=== PATIENT | female | born 1980 | race Caucasian/White ===

== ENCOUNTER → 2020-03-08 12:36 | Outpatient (BNVA) | payer MEDICAID, SELFPAY | PROVIDERS: Family Provider Family Medicine; PCP Family Medicine; Visit Provider Internal Medicine Rheumatology | DX: M19.90 Unspecified osteoarthritis, unspecified site (principal); Z79.899 Other long term (current) drug therapy; Z11.59 Encounter for screening for other viral diseases; Z11.1 Encounter for screening for respiratory tuberculosis; R21 Rash and other nonspecific skin eruption; Z87.2 Personal history of diseases of the skin and subcutaneous tissue; M54.89 Other dorsalgia; M79.7 Fibromyalgia; M77.9 Enthesopathy, unspecified; E11.9 Type 2 diabetes mellitus without complications | CPT/HCPCS: 36415; 82306; 85651; 86140; 86480; 86704; 86803; 86812; 87340; 99204 ==

== ENCOUNTER 2020-03-28 12:44 | Outpatient (CLI) | payer MEDICAID, SELFPAY ==
--- NOTE | 2020-03-28 13:15 | XR_ITS ---
WS: [id number] XR hand RT min 3V* [id number] REASON FOR EXAM: psoriatic arthritis FINDINGS: No focal bony abnormality is identified. Specifically no synovial based bony erosions are noted. The joint spaces of the hand are relatively well preserved. No soft tissue abnormality is identified. XR/XR hand RT min 3V* [id number] IMPRESSION: Normal right hand.
--- NOTE | 2020-03-28 13:45 | XR_ITS ---
WS: [id number] XR hand LT min 3V* [id number] REASON FOR EXAM: psoriatic arthritis FINDINGS: No focal bony abnormalities are identified. Specifically no synovial based erosions are identified. The joint spaces of the left hand are well-preserved. No soft tissue abnormalities are identified. XR/XR hand LT min 3V* [id number] IMPRESSION: Normal left hand.
--- NOTE | 2020-03-28 14:15 | XR_ITS ---
WS: [id number] CHEST 2 VIEWS HISTORY: psoriatic arthritis COMPARISON: None available. Lungs: Area of atelectasis at the medial RIGHT lung base. Otherwise lungs are clear. No nodules. No p leural effusion. Cardiac size: Mildly enlarged cardiac silhouette. Mediastinum/Aorta: Normal mediastinum. Bones: Normal. XR/XR chest 2V* [id number] IMPRESSION: Subsegmental atelectasis at the medial RIGHT lung base. Recommend short-term fo llow-up to ensure resolution.
--- NOTE | 2020-03-28 14:45 | XR_ITS ---
WS: [id number] XR foot LT min 3V* [id number] REASON FOR EXAM: psoriatic arthritis FINDINGS: There is early bony bridging identified on the lateral view of the left foot on the AP views this wou ld appear to represent the lateralmost aspect of the articulation between the navicular bone on the f irst cuneiform. The abnormality could represent a bridging bony osteophytes but more likely represent s a segment of fusion/coalition between the 2 tarsal bones. No other focal bony abnormality or articular abnormality is identified. No synovial based erosions ar e identified. Small accessory ossicle or sesamoid deep to the plantar fascia. XR/XR foot LT min 3V* [id number] IMPRESSION: No findings of synovial-based arthropathy. Tarsal abnormality as above.
--- NOTE | 2020-03-28 15:14 | XR_ITS ---
XR foot RT min 3V* [id number] REASON FOR EXAM: psoriatic arthritis FINDINGS: No focal bony abnormality. Specifically no synovial based erosions are identified. The joint spaces of the forefoot, midfoot, and hindfoot are relatively well preserved. No soft tissue abnormality is identified. IMPRESSION: Normal right foot. [facility] XR/XR foot RT min 3V* [id number] IMPRESSION: No synovial based arthropathic changes identified.
--- NOTE | 2020-03-28 15:15 | XR_ITS ---
WS: [id number] XR foot RT min 3V* [id number] REASON FOR EXAM: psoriatic arthritis FINDINGS: Deep to the plantar fascia which cannot be localized on an AP view. It would appear to be a sesamoid or accessory ossicle. The joint spaces of the forefoot, midfoot, and hindfoot are well preserved. No focal bony abnormality is identified.
--- NOTE | 2020-03-28 15:45 | XR_ITS ---
WS: [id number] PELVIS: AP VIEW SUBMITTED HISTORY: psoriatic arthritis COMPARISON: None available. Very mild degenerative changes at the SI joints. No erosions or fusion. No significant narrowing of t he hip joints. No periostitis. XR/XR pelvis 1-2V* [id number] IMPRESSION: Mild degenerative changes at the SI joints.
== END 2020-03-28 12:45 | disposition home or self-care (01) ==
LOC: RAD 12:46
PROVIDERS: Family Provider Family Medicine; PCP Family Medicine; Visit Provider Internal Medicine Rheumatology
DX: L40.50 Arthropathic psoriasis, unspecified (principal); L40.9 Psoriasis, unspecified; J98.11 Atelectasis
CPT/HCPCS: 71046; 72170; 73130; 73630

== ENCOUNTER → 2020-04-19 13:50 | Outpatient (BNVA) | payer MEDICAID, SELFPAY | PROVIDERS: Family Provider Family Medicine; PCP Family Medicine; Visit Provider Internal Medicine Rheumatology | DX: L40.50 Arthropathic psoriasis, unspecified (principal); Z79.899 Other long term (current) drug therapy; Z15.89 Genetic susceptibility to other disease; M77.9 Enthesopathy, unspecified; M54.89 Other dorsalgia; R21 Rash and other nonspecific skin eruption; M79.7 Fibromyalgia | CPT/HCPCS: 99214 ==

== ENCOUNTER 2020-05-01 10:55 | Outpatient (CLI) | payer MEDICAID, SELFPAY ==
--- NOTE | 2020-05-01 11:03 | MR_ITS ---
WS: [id number] INDICATION: Sacroiliitis TECHNIQUE: MRI of the sacrum without gadolinium enhancement. Coronal T2, coronal STIR, axial T1, axia l T2, sagittal T1 fat sat and sagittal T2 fat sat. FINDINGS: T1 hyperintense lesion right ilium consistent with hemangioma measuring 13 mm. Mild degener ative arthritis sacroiliac joints. No periarticular edema. No evidence of sacroiliitis. Normal bone m arrow signal in the sacrum and lower lumbar spine. Normal bone marrow signal in the proximal hips par tially visualized. Soft tissues are normal in appearance. Partially visualized sigmoid colon appears normal. Unremarkable lower lumbar spine. MR/MR sacrum wo con* [id number] IMPRESSION: 1. No evidence of bone marrow edema or sacroiliitis. 2. Mild degenerative arthritis sacroiliac joints. No periarticular edema. No s ignificant erosive changes. 3. Incidental hemangioma right ilium. 4. Unremarkable lower lumbar spine.
== END 2020-05-01 10:56 | disposition home or self-care (01) ==
LOC: RADSHAW 10:58
PROVIDERS: PCP Family Medicine; Visit Provider Internal Medicine Rheumatology
DX: Z15.89 Genetic susceptibility to other disease (principal); M46.1 Sacroiliitis, not elsewhere classified; D18.09 Hemangioma of other sites
CPT/HCPCS: 72148

== ENCOUNTER → 2020-07-10 14:50 | Outpatient (BNVA) | payer MEDICAID, SELFPAY | PROVIDERS: PCP Family Medicine; Visit Provider Internal Medicine Rheumatology | DX: L40.50 Arthropathic psoriasis, unspecified (principal); Z79.899 Other long term (current) drug therapy; Z15.89 Genetic susceptibility to other disease; M77.9 Enthesopathy, unspecified; M79.7 Fibromyalgia; M54.89 Other dorsalgia; L98.9 Disorder of the skin and subcutaneous tissue, unspecified; E11.9 Type 2 diabetes mellitus without complications; Z87.891 Personal history of nicotine dependence | CPT/HCPCS: 99214 ==

== ENCOUNTER → 2020-11-07 13:40 | Outpatient (BNVA) | payer MEDICAID, SELFPAY | PROVIDERS: PCP Family Medicine; Visit Provider Internal Medicine Rheumatology | DX: L40.50 Arthropathic psoriasis, unspecified (principal); Z79.899 Other long term (current) drug therapy; Z15.89 Genetic susceptibility to other disease; M77.9 Enthesopathy, unspecified; M54.89 Other dorsalgia; M79.7 Fibromyalgia; E11.9 Type 2 diabetes mellitus without complications; Z79.4 Long term (current) use of insulin; Z87.891 Personal history of nicotine dependence | CPT/HCPCS: 99214 ==

== ENCOUNTER → 2021-02-26 14:37 | Outpatient (BNVA) | payer MEDICAID, SELFPAY | PROVIDERS: PCP Family Medicine; Visit Provider Internal Medicine Rheumatology | DX: L40.50 Arthropathic psoriasis, unspecified (principal); Z79.899 Other long term (current) drug therapy; Z15.89 Genetic susceptibility to other disease; M77.9 Enthesopathy, unspecified; M79.7 Fibromyalgia; M54.89 Other dorsalgia; L98.9 Disorder of the skin and subcutaneous tissue, unspecified; E11.9 Type 2 diabetes mellitus without complications; Z71.89 Other specified counseling; Z87.891 Personal history of nicotine dependence | CPT/HCPCS: 99214 ==

== ENCOUNTER → 2021-07-16 15:53 | Outpatient (BNVA) | payer MEDICAID, SELFPAY | PROVIDERS: PCP Family Medicine; Visit Provider Nurse Practitioner Family | DX: U09.9 Post COVID-19 condition, unspecified (principal); Z99.2 Dependence on renal dialysis | CPT/HCPCS: 80053; 85007 ==

== ENCOUNTER → 2021-09-10 13:16 | Outpatient (BNVA) | payer MEDICAID, SELFPAY | PROVIDERS: PCP Family Medicine; Visit Provider Internal Medicine Rheumatology | DX: L40.50 Arthropathic psoriasis, unspecified (principal); I77.6 Arteritis, unspecified; Z79.899 Other long term (current) drug therapy; M79.7 Fibromyalgia; E11.9 Type 2 diabetes mellitus without complications; Z87.2 Personal history of diseases of the skin and subcutaneous tissue | CPT/HCPCS: 99214 ==

== ENCOUNTER 2021-10-23 12:00 | Outpatient (CLI) | payer MEDICAID, SELFPAY | END 2021-10-23 12:01 | disposition home or self-care (01) | LOC: SLEEP 10-24 14:17 | PROVIDERS: PCP Family Medicine; Visit Provider Internal Medicine Critical Care Medicine | DX: G47.33 Obstructive sleep apnea (adult) (pediatric) (principal) | CPT/HCPCS: G0399 ==

== ENCOUNTER 2021-11-05 12:10 | Outpatient (CLI) | payer MEDICAID, SELFPAY ==
[2021-11-05 13:16] LABS: C Reactive Protein 5.7 mg/L (0.0-4.9)
[2021-11-05 13:20] LABS: Erythrocyte Sedimentation Rate 33 mm/hr (0-15)
[2021-11-05 13:57] LABS: Glucose Urine UA Norm (Normal); Ketones Urine Negative (Negative); Protein Urine 1+ (Negative); Urine Appearance Clear (CLEAR); Urine Color Yellow (Yellow); Urine Creatinine 61 mg/dL (28-217); pH Urine 5 (5-7)
[2021-11-05 13:58] LABS: Bilirubin Urine Neg (Negative); Blood Urine 3+ (Negative); Leukocyte Esterase Urine Negative (Negative); Nitrate Urine Negative (Negative); Urobilinogen Urine Norm (Negative); WBC Urine 0-4 /hpf (0-5)
[2021-11-05 13:59] LABS: Add Urine Culture? Yes; Bacteria Urine 1+ /hpf; Hyaline Casts Urine RARE /lpf; Mucus Urine TRACE /hpf; Urine Protein Random 112 mg/dL
== END 2021-11-05 12:11 | disposition home or self-care (01) ==
LOC: LAB 12:11
PROVIDERS: PCP Family Medicine; Visit Provider Internal Medicine Rheumatology
DX: L40.50 Arthropathic psoriasis, unspecified (principal); I77.6 Arteritis, unspecified; Z79.899 Other long term (current) drug therapy; Z15.89 Genetic susceptibility to other disease
CPT/HCPCS: 81001; 82570; 84156; 85651; 86140

== ENCOUNTER → 2021-11-28 14:17 | Outpatient (BNVA) | payer MEDICAID, SELFPAY | PROVIDERS: PCP Family Medicine; Visit Provider Internal Medicine Rheumatology | DX: L40.50 Arthropathic psoriasis, unspecified (principal); N05.9 Unspecified nephritic syndrome with unspecified morphologic changes; I77.89 Other specified disorders of arteries and arterioles; Z79.899 Other long term (current) drug therapy; Z79.52 Long term (current) use of systemic steroids; E11.9 Type 2 diabetes mellitus without complications; Z15.89 Genetic susceptibility to other disease; Z71.89 Other specified counseling | CPT/HCPCS: 99214; 99215 ==

== ENCOUNTER → 2022-01-21 14:28 | Outpatient (BNVA) | payer MEDICAID, SELFPAY | PROVIDERS: PCP Family Medicine; Visit Provider Internal Medicine Rheumatology | DX: L40.50 Arthropathic psoriasis, unspecified (principal); N05.9 Unspecified nephritic syndrome with unspecified morphologic changes; I77.89 Other specified disorders of arteries and arterioles; Z79.899 Other long term (current) drug therapy; M79.7 Fibromyalgia; Z15.89 Genetic susceptibility to other disease; Z71.89 Other specified counseling | CPT/HCPCS: 36415; 80076; 82565; 85025; 85651; 86140; 99205 ==

== ENCOUNTER → 2022-02-07 10:00 | Outpatient (BNVA) | payer MEDICAID, SELFPAY | PROVIDERS: PCP Family Medicine; Visit Provider Internal Medicine Critical Care Medicine | DX: J96.11 Chronic respiratory failure with hypoxia (principal); J45.909 Unspecified asthma, uncomplicated; I77.6 Arteritis, unspecified; R60.0 Localized edema; Z87.891 Personal history of nicotine dependence; Z86.16 Personal history of COVID-19; L40.50 Arthropathic psoriasis, unspecified | CPT/HCPCS: 71046; 80053; 83880; 85025; 87635; 99214 ==

== ENCOUNTER → 2022-05-12 14:00 | Outpatient (BNVA) | payer MEDICAID, SELFPAY | PROVIDERS: PCP Family Medicine; Visit Provider Internal Medicine Rheumatology | DX: N05.9 Unspecified nephritic syndrome with unspecified morphologic changes (principal); I77.89 Other specified disorders of arteries and arterioles; Z79.899 Other long term (current) drug therapy; M54.89 Other dorsalgia; L40.50 Arthropathic psoriasis, unspecified; Z71.89 Other specified counseling; M79.7 Fibromyalgia; Z15.89 Genetic susceptibility to other disease; R21 Rash and other nonspecific skin eruption; E11.9 Type 2 diabetes mellitus without complications; Z79.4 Long term (current) use of insulin | CPT/HCPCS: 99214 ==

== ENCOUNTER → 2022-07-31 14:15 | Outpatient (BNVA) | payer MEDICAID, SELFPAY | PROVIDERS: PCP Family Medicine; Visit Provider Internal Medicine Pulmonary Disease | DX: J45.909 Unspecified asthma, uncomplicated (principal); J96.11 Chronic respiratory failure with hypoxia; R07.9 Chest pain, unspecified; I77.6 Arteritis, unspecified; G47.33 Obstructive sleep apnea (adult) (pediatric); Z87.891 Personal history of nicotine dependence; R63.5 Abnormal weight gain; Z68.41 Body mass index [BMI] 40.0-44.9, adult; R60.9 Edema, unspecified; J32.9 Chronic sinusitis, unspecified; R09.82 Postnasal drip; L40.50 Arthropathic psoriasis, unspecified | CPT/HCPCS: 99214 ==

== ENCOUNTER → 2022-08-19 14:09 | Outpatient (BNVA) | payer MEDICAID, SELFPAY | PROVIDERS: PCP Family Medicine; Visit Provider Internal Medicine Rheumatology | DX: N05.9 Unspecified nephritic syndrome with unspecified morphologic changes (principal); I77.89 Other specified disorders of arteries and arterioles; Z15.89 Genetic susceptibility to other disease; M25.569 Pain in unspecified knee; L40.50 Arthropathic psoriasis, unspecified; Z79.899 Other long term (current) drug therapy; Z71.89 Other specified counseling; M79.7 Fibromyalgia; E11.8 Type 2 diabetes mellitus with unspecified complications; I10 Essential (primary) hypertension; Z79.52 Long term (current) use of systemic steroids | CPT/HCPCS: 99214 ==

== ENCOUNTER 2022-10-28 13:09 | Outpatient (CLI) | payer MEDICAID, SELFPAY ==
--- NOTE | 2022-10-28 14:35 | XR_ITS ---
WS: [id number] Sacroiliac joints, 3 views, Clinical Data: Z15.89 - Genetic susceptibility to other disease Comparison: AP pelvis, 03/28/2020 Findings: The SI joints are normal in width. No erosion, sclerosis or destruction is seen. There are no fractur es or dislocations. The adjacent visualized pelvis and hips are unremarkable. XR/XR sacroiliac jts m 3V [id number] Impression: Negative SI joints.
--- NOTE | 2022-10-28 14:35 | XR_ITS ---
WS: [id number] Right knee, 3 views, 10/28/2022 Clinical Data: Z15.89 - Genetic susceptibility to other disease Comparison: Right knee, 04/01/2015. Findings: No fractures or dislocations are seen. The joint spaces are normal. The patella is intact. The soft t issues are unremarkable. XR/XR knee RT 3V* [id number] Impression: Negative right knee. Kellgren-Jatin Classification: grade 0 (none): definite absence of x-ray raf nges of osteoarthritis
--- NOTE | 2022-10-28 14:49 | USCV_ITS ---
Amna De Guzman Age: 42 Gender: F : 1980 Exam Date: 10/28/2022 15:10 Ordering Phys: Bipin Villanueva DO Technologist: CT Exam Location: [facility] – [place] Indication: sob BP: 168 / 90 HR: 84 Rhythm: Sinus Technical Quality: Adequate MEASUREMENTS (Male / Female) Normal Values 2D ECHO LV Diastolic Diameter PLAX 5.0 cm 4.2 - 5.9 / 3.9 - 5.3 cm LV Systolic Diameter PLAX 3.5 cm IVS Diastolic Thickness 0.9 cm 0.6 - 1.0 / 0.6 - 0.9 cm IVS Systolic Thickness 2.0 cm LVPW Diastolic Thickness 1.7 cm 0.6 - 1.0 / 0.6 - 0.9 cm LVPW Systolic Thickness 2.3 cm LVOT Diameter 2.0 cm LV Ejection Fraction 2D Teich 56.1 % LV Ejection Fraction MOD 2C 57.5 % LV Ejection Fraction 2C AL 60.0 % LA Diameter 4.0 cm LA Width 3.5 cm LA Height 3.9 cm RA Width 3.4 cm RA Height 3.3 cm Aorta at Sinotubular Diameter 2.4 cm M-MODE Aortic Annulus Diameter 2.7 cm LA Ao Ratio MM 1.8 MV E Point Septal Separation 0.8 cm DOPPLER AV Peak Velocity 129.0 cm/s LVOT Peak Velocity 110.0 cm/s AV Area Cont Eq vti 3.5 cm squared AV Area Cont Eq pk 2.7 cm squared MV Peak Velocity 130.0 cm/s MV Area PHT 4.6 cm squared Mitral E to A Ratio 0.7 MV E' Velocity 41.5 cm/s Mitral E to MV E' Ratio 9.7 Mitral E to LV E' Lateral Ratio 9.8 Mitral E to LV E' Septal Ratio 9.6 TR Peak Velocity 144.5 cm/s TR Peak Gradient 8.4 mmHg TR Mean Velocity 133.0 cm/s TR Mean Gradient 8.1 mmHg TR Velocity Time Integral 36.9 cm TV Peak E Velocity 94.0 cm/s Right Atrial Pressure 8.0 mmHg Pulmonary Artery Systolic Pressu 16.4 mmHg PV Peak Velocity 127.0 cm/s FINDINGS Left Ventricle Normal left ventricular size and systolic function, EF 60 %. No regional wall motion abnormalities. Grade I/IV diastolic dysfunction (abnormal relaxation filling pattern), normal to mildly elevated filling pressures. Right Ventricle The right ventricle is normal in size and function. Right Atrium The right atrium is normal in size. Left Atrium The left atrium is normal in size. Mitral Valve No gross abnormalities noted Aortic Valve No gross abnormalities noted Tricuspid Valve Trace tricuspid valve regurgitation. Pulmonic Valve No gross abnormalities noted Pericardium No pericardial effusion. Aorta Normal ascending aorta dimension. IVC The inferior vena cava appears normal. CONCLUSIONS Normal left ventricular size and systolic function, EF 60 %. No regional wall motion abnormalities. Grade I/IV diastolic dysfunction (abnormal relaxation filling pattern), normal to mildly elevated filling pressures. Trace tricuspid valve regurgitation. Estimated pulmonary artery peak systolic pressure within normal limits. There is no pericardial effusion. No similar previous studies are available for comparison Dr Arpan Barber MD FAC (Electronically Signed) Final Date: 28 Oct 2022 21:27 S
== END 2022-10-28 13:10 | disposition home or self-care (01) ==
PROVIDERS: PCP Family Medicine; Visit Provider Family Medicine
DX: Z15.89 Genetic susceptibility to other disease (principal); M25.562 Pain in left knee; M25.561 Pain in right knee
CPT/HCPCS: 72202; 73562; 93306; 94010; 94618; 94729

== ENCOUNTER 2022-11-03 12:21 | Outpatient (CLI) | payer MEDICAID, SELFPAY ==
[2022-11-03 13:06] LABS: Basophils % 0.3 %; Eosinophils # 0.2 10^3/uL (0.0-0.8); Eosinophils % 1.3 %; Hematocrit 32.1 % (37.0-47.0); Hemoglobin 10.1 g/dL (11.5-15.3); Lymphocytes # 1.9 10^3/uL (0.8-4.8); Lymphocytes % 15.8 %; Mean Corpuscular HGB Conc 31.5 g/dL (30.0-36.0); Mean Corpuscular Hemoglobin 28.1 pg (28.0-34.0); Mean Corpuscular Volume 89.2 fl (81-99); Mean Platelet Volume 10.4 fL (7.4-10.4); Monocytes # 0.6 10^3/uL (0.2-0.9); Monocytes % 4.7 %; Neutrophils # 9.02 10^3/uL (1.8-7.7); Neutrophils % 75.3 %; Nucleated Red Blood Cells % 0.2 %; Platelet Count 306 10^3/cmm (130-400); Red Cell Distribution Width 14.6 % (12.1-15.1)
[2022-11-03 13:27] LABS: Alanine Aminotransferase 7 U/L (0-33); Albumin Level 3.7 g/dL (3.5-5.2); Alkaline Phosphatase 129 U/L (35-105); Aspartate Amino Transferase 10 U/L (0-32); C Reactive Protein 34.7 mg/L (0.0-4.9); Globulin 3.4 g/dL (1.3-4.6); Glomerular Filtration Rate 35.2 mL/min (90-130); Total Bilirubin 0.2 mg/dL (0.15-1.2); Total Protein 7.1 g/dL (6.6-8.7)
[2022-11-04 18:30] LABS: Alternaria Alternata (M6) Ige <0.10 kU/L; Alternaria Class 0; Bermuda Class 0; Bermuda Grass (G2) Ige <0.10 kU/L; Cat Dander (E1) Ige <0.10 kU/L; Cat Dander Class 0; Common Ragweed (Short) (W1) Ig <0.10 kU/L; D. Farinae Class 0; Dermatophagoides Class 0; Dermatophagoides Farinae (D2) <0.10 kU/L; Dermatophagoides Pteronyssinus <0.10 kU/L; Dog Dander (E5) Ige <0.10 kU/L; Dog Dander Class 0; Elm (T8) Ige <0.10 kU/L; Elm Class 0; English Plantain (W9) Ige <0.10 kU/L; English Plantain Class 0; House Dust (Greer) (H1) Ige <0.10 kU/L; House Dust (Hollister- Stier) <0.10 kU/L; House Dust Class 0; Immunoglobulin E 4 kU/L (<OR=114); Johnson Grass (G10) Ige <0.10 kU/L; Johnson Grass Cl 0; June Grass Class 0; June Grass(Kentucky Blue) (G8) <0.10 kU/L; Lamb'S Quarters (Goose Foot) <0.10 kU/L; Lamb'S Quarters Class 0; Maple (Box Elder) (T1) Ige <0.10 kU/L; Maple Class 0; Meadow Fescue (G4) Ige <0.10 kU/L; Meadow Fescue Class 0; Mucor Racemosus Class 0; Oak (T7) Ige <0.10 kU/L; Oak Class 0; Orchard Grass (Cocksfoot) (G3) <0.10 kU/L; Penicillium Class 0; Penicillium Notatum (M1) Ige <0.10 kU/L; Perennial Rye Grass (G5) Ige <0.10 kU/L; Perennial Rye Grass Class 0; Ragweeed Class 0; Rough Marsh Elder (W16) Ige <0.10 kU/L; Rough Marsh Elder Class 0; Sweet Vernal Class 0; Sweet Vernal Grass (G1) Ige <0.10 kU/L; Timothy Grass (G6) Ige <0.10 kU/L; Timothy Grass Class 0
[2022-11-05 19:29] LABS: Aspergillus Fumigatus, Igg Ab, 4.7 mg/L (<=102)
== END 2022-11-03 12:22 | disposition home or self-care (01) ==
LOC: LAB 12:27
PROVIDERS: Internal Medicine Rheumatology; Visit Provider Internal Medicine Pulmonary Disease
DX: R06.02 Shortness of breath (principal); R55 Syncope and collapse; R00.2 Palpitations; L40.50 Arthropathic psoriasis, unspecified; Z79.899 Other long term (current) drug therapy
CPT/HCPCS: 36415; 80076; 82565; 82785; 85025; 86003; 86140; 93270

== ENCOUNTER 2022-11-13 13:18 | Outpatient (CLI) | payer MEDICAID, SELFPAY ==
--- NOTE | 2022-11-13 13:00 | USCV_ITS ---
Amna De Guzman Age: 42 Gender: F : 1980 Exam Date: 11/13/2022 13:31 Ordering Phys: Daryl Mazariegos MD Technologist: BENITO Exam Location: [facility] – [place] Indication: Palpitations. Pre Syncope Risk Factors: Previous Vascular Surgery: Right Brachial BP: / Left Brachial BP: / Right Left Velocity (cm/s) Spectral Plaque Velocity (cm/s) Spectral Plaque Syst/Diast Broadening Syst/Diast Broadening 133.10/30.20 Prox CCA 165.60/ 39.40 119.60/30.20 Mid CCA 105.20/ 27.60 111.80/34.70 Distal CCA 113.10/ 39.40 77.90/ 26.70 Prox ICA 143.30/ 32.90 96.50/ 24.10 Mid ICA 107.80/ 38.10 122.30/50.00 Distal ICA 120.90/ 55.20 134.10 ECA 117.00 0.92 ICA/CCA 0.87 Antegrade Vertebral Antegrade 94.70/ 28.90 cm/s 69.10/ 17.90 cm/s Tri Subclavian Tri 235.2 185.3 0 0 CONCLUSIONS Mild intimal thickening both CCA Right ICA stenosis <50%. Left ICA stenosis 50-69% at the lower end of the range. Normal antegrade Doppler flow noted in the right vertebral artery. Normal antegrade Doppler flow noted in the left vertebral artery. Ramírez Em MD (Electronically Signed) Final Date: 13 Nov 2022 17:31 S
== END 2022-11-13 13:19 | disposition home or self-care (01) ==
LOC: RAD 13:19
PROVIDERS: PCP Internal Medicine Pulmonary Disease; Visit Provider Internal Medicine Pulmonary Disease
DX: R00.2 Palpitations (principal); R55 Syncope and collapse; I65.23 Occlusion and stenosis of bilateral carotid arteries
CPT/HCPCS: 93880

== ENCOUNTER → 2022-11-20 14:36 | Outpatient (BNVA) | payer MEDICAID, SELFPAY | PROVIDERS: PCP Internal Medicine Pulmonary Disease; Visit Provider Internal Medicine Rheumatology | DX: E11.9 Type 2 diabetes mellitus without complications (principal); N05.9 Unspecified nephritic syndrome with unspecified morphologic changes; I77.89 Other specified disorders of arteries and arterioles; Z71.89 Other specified counseling; M79.7 Fibromyalgia; Z15.89 Genetic susceptibility to other disease; L40.50 Arthropathic psoriasis, unspecified; Z79.899 Other long term (current) drug therapy | CPT/HCPCS: 99214 ==

== ENCOUNTER → 2022-12-11 11:04 | Outpatient (BNVA) | payer MEDICAID, SELFPAY | PROVIDERS: PCP Internal Medicine Pulmonary Disease; Visit Provider Thoracic Surgery (Cardiothoracic Vascular Surgery) | DX: I65.23 Occlusion and stenosis of bilateral carotid arteries (principal); I10 Essential (primary) hypertension; Z87.891 Personal history of nicotine dependence | CPT/HCPCS: 99203 ==

== ENCOUNTER 2023-01-14 23:01 | Emergency (ER) | payer MEDICAID, SELFPAY ==
[2023-01-14 23:14] VITALS: BP 170/96; PULSE 116; RESP 18; TEMP 36.6; O2SAT 94; BMI 46.0
--- NOTE | 2023-01-14 23:27 | ED_ITS ---
HPI - Abdominal Pain General: Chief Complaint: Abdominal Pain Stated Complaint: ABD Pain Time Seen by Provider: 01/14/23 23:13 History of Present Illness: Ms. De Guzman is a 42-year-old lady with complex past medical history including fibromyalgia, hypertension, hyper lipidemia, obesity, history of vasculitis with coma, history of CKD, history of feeding tube placement status post removal presenting to the emergency department for evaluation of abdominal pain. She notes worsening symptoms over the past week initially intermittent however now more constant. There is left upper quadrant pain associated with epigastric and some radiation of the right upper quadrant. She notes worsening with eating. She has nausea but no vomiting. She has not had diarrhea. Apparently she went to [facility] and CT without contrast did not demonstrate obvious finding. No other specific changes in health, exacerbating, or alleviating factors identified. 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 High risk medication use History of hypercholesterolemia History of psoriasis HLA B27 (HLA B27 positive) Hx of migraines Hypertension Immunization counseling Inflammatory back pain Joint pain Muscle pain Psoriatic arthritis Skin rash Small vessel vasculitis Vasculitis Surgical History History of tubal ligation S/P emergency tracheotomy for assistance in breathing Family History Other Cancer Diabetes Hyperlipidemia Psoriatic arthritis Stroke Denies family history of Rheumatoid arthritis Lupus CAD (coronary artery disease) Chronic kidney disease (CKD) Lung disease Hypertension Social History Smoking and tobacco status: former smoker (Quit 2015,) Quit status (tobacco): has quit using tobacco Year quit tobacco: 2016 Former quit date comment: 1ppd X 19 years, started at age 17 years Alcohol intake: current Alcohol intake frequency: holidays/special occasions only Physical Exam Const: COMMON NORMALS: alert GENERAL APPEARANCE: cooperative and well developed HENMT: COMMON NORMALS: normocephalic and atraumatic HEAD & SCALP: normocephalic and atraumatic Eye: COMMON NORMALS: conjunctivae normal CONJUNCTIVA: Yes conjunctivae normal SCLERA: sclerae normal Neck/C-Spine: COMMON NORMALS: supple GENERAL: Yes trachea midline Resp: COMMON NORMALS: clear to auscultation bilaterally EFFORT & INSPECTION: Yes able to speak in complete sentences AUSCULTATION: clear to auscultation bilaterally Cardio: COMMON NORMALS: regular rate and regular rhythm RATE: regular rate RHYTHM: regular rhythm GI: COMMON NORMALS: Soft to palpation PALPATION: Yes Soft to palpation, Yes Tenderness to palpation present (GI), No Guarding due to palpation present (GI) and No Rigid due to palpation Extremity: GENERAL: Yes normal exam except as noted and No edema Neuro: COMMON NORMALS: moves all extremities SENSORIUM/ORIENTATION: Yes alert and No Orientation impaired Psych: COMMON NORMALS: mental status grossly normal and Normal thought process present THOUGHT PROCESS: Normal thought process present Course Vital Signs: Vital signs: Vital Signs Temperature 97.8 F 01/14/23 23:14 Pulse Rate 93 01/15/23 03:10 Respiratory Rate 20 H 01/15/23 03:15 Blood Pressure 176/90 01/15/23 03:15 Pulse Oximetry 99 01/15/23 03:15 MDM - Abdominal Pain Medical Decision Making 42-year-old lady presenting with abdominal symptoms. Uncomfortable appearing however nontoxic. Abdominal tenderness without evidence of acute surgical abdomen. Labs with minimal leukocytosis, mild anemia. Metabolic panel with mild dehydration, elevated creatinine noted though mildly improved/order baseline. Lipase is minimally elevated. No clear UTI. CT with possible mild ileus/enteritis. Incidental findings discussed with patient. Symptoms improved with analgesia, antiemetic, GI cocktail. The results of ED evaluation were discussed with the patient including pr escriptions and/or symptomatic cares (if applicable) including appropriate and responsible use, followup plan, and return precautions. The patient verbalized understanding and felt safe for discharge. Medical Records I reviewed the patient's medical records. Lab Data I reviewed the patient's lab results. 01/15/23 00:11 01/15/23 00:11 Labs/Radiology: Radiology Impressions Abdomen/Pelvis CT 01/15/23 00:56 IMPRESSION: 1. Question mild left-sided small bowel ileus or enteritis. No high-grade small bowel obstruction, abscess or free air. 2. Left ovarian 4 cm cyst. 3. Large and fatty liver. Other chronic findings above. Laboratory Results WBC 10.4 10^3/uL (4.0-10.0) H 01/15/23 00:11 RBC 3.88 10^6/uL (4.1-5.3) L 01/15/23 00:11 Hgb 11.1 g/dL (11.5-15.3) L 01/15/23 00:11 Hct 35.4 % (37.0-47.0) L 01/15/23 00:11 MCV 91.2 fl (81-99) 01/15/23 00:11 MCH 28.6 pg (28.0-34.0) 01/15/23 00:11 MCHC 31.4 g/dL (30.0-36.0) 01/15/23 00:11 RDW 16.5 % (12.1-15.1) H 01/15/23 00:11 Plt Count 251 10^3/cmm (130-400) 01/15/23 00:11 MPV 9.8 fL (7.4-10.4) 01/15/23 00:11 Neut % (Auto) 78.9 % 01/15/23 00:11 Lymph % (Auto) 12.3 % 01/15/23 00:11 [place] % (Auto) 6.1 % 01/15/23 00:11 Eos % (Auto) 1.1 % 01/15/23 00:11 Baso % (Auto) 0.5 % 01/15/23 00:11 Neut # (Auto) 8.24 10^3/uL (1.8-7.7) H 01/15/23 00:11 Lymph # (Auto) 1.3 10^3/uL (0.8-4.8) 01/15/23 00:11 [place] # (Auto) 0.6 10^3/uL (0.2-0.9) 01/15/23 00:11 Eos # (Auto) 0.1 10^3/uL (0.0-0.8) 01/15/23 00:11 Baso # (Auto) 0.1 10^3/uL (0.0-0.1) 01/15/23 00:11 Nucleated RBC % (auto) 0 % 01/15/23 00:11 Nucleated RBCs # 0.0 /100WBC 01/15/23 00:11 Sodium 133 mmol/L (136-145) L 01/15/23 00:11 Potassium 4.0 mmol/L (3.5-5.1) 01/15/23 00:11 Chloride 97 mmol/L (98-107) L 01/15/23 00:11 Carbon Dioxide 23 mmol/L (22-29) 01/15/23 00:11 Anion Gap 17.0 (5-19) 01/15/23 00:11 BUN 23 mg/dL (6-20) H 01/15/23 00:11 Creatinine 1.4 mg/dL (0.5-0.9) H 01/15/23 00:11 GFR Calculation 41.0 mL/min (90-130) L 01/15/23 00:11 Glucose 264 mg/dL (65-115) H 01/15/23 00:11 Calculated Osmolality 289 mOsm/kg (285-295) 01/15/23 00:11 Calcium 9.2 mg/dL (8.5-10.5) 01/15/23 00:11 Total Bilirubin 0.2 mg/dL (0.15-1.2) 01/15/23 00:11 AST 23 U/L (0-32) 01/15/23 00:11 ALT 24 U/L (0-33) 01/15/23 00:11 Alkaline Phosphatase 119 U/L (35-105) H 01/15/23 00:11 Total Protein 6.9 g/dL (6.6-8.7) 01/15/23 00:11 Albumin 3.7 g/dL (3.5-5.2) 01/15/23 00:11 Globulin 3.2 g/dL (1.3-4.6) 01/15/23 00:11 Lipase 71 U/L (13-60) H 01/15/23 00:11 HCG, Qual Negative (Negative) 01/15/23 00:11 Urine Color Yellow (Yellow) 01/15/23 01:09 Urine Appearance Clear (CLEAR) 07/27/23 01:09 Urine pH 5 (5-7) 01/15/23 01:09 Ur Specific [place] 1.010 (1.005-1.030) 01/15/23 01:09 Urine Protein 3+ (Negative) H 01/15/23 01:09 Urine Glucose (UA) 1+ (Normal) H 01/15/23 01:09 Urine Ketones Negative (Negative) 01/15/23 01:09 Urine Blood 2+ (Negative) H 01/15/23 01:09 Urine Nitrate Negative (Negative) 01/15/23 01:09 Urine Bilirubin Neg (Negative) 01/15/23 01:09 Urine Urobilinogen Norm mg/dL (Negative) 01/15/23 01:09 Ur Leukocyte Esterase Negative (Negative) 01/15/23 01:09 Urine RBC 0-4 /hpf (0-2) H 01/15/23 01:09 Urine WBC 0-4 /hpf (0-5) H 01/15/23 01:09 Ur Squamous Epith Cells 0-4 /hpf (0-5) H 01/15/23 01:09 Amorphous Sediment Not Reportable 01/15/23 01:09 Urine Bacteria Trace /hpf (NONE) 01/15/23 01:09 Discharge Plan Discharge Patient Disposition: Home Clinical Impression: Enteritis, Abdominal pain, Dehydration, mild Condition: Stable Prescriptions: New Reglan 10 mg tablet 10 mg PO Q4H PRN (Reason: nausea and vomiting) Qty: 20 0RF oxycodone 5 mg tablet 5 mg PO Q4H PRN (Reason: pain) Qty: 10 0RF No Action cetirizine 10 mg tablet 10 mg PO DAILY polysaccharide iron complex 150 mg iron capsule 150 mg PO DAILY cholecalciferol (vitamin D3) 25 mcg (1,000 unit) capsule 25 mcg PO DAILY magnesium oxide 400 mg magnesium tablet 400 mg PO BID losartan 25 mg tablet 50 mg PO DAILY azathioprine 50 mg tablet 50 mg PO DAILY metoprolol succinate 50 mg tablet extended release 24 hr 50 mg PO DAILY magnesium oxide 400 mg magnesium tablet 400 mg PO BID cholecalciferol (vitamin D3) 25 mcg (1,000 unit) capsule 2,000 unit PO DAILY cetirizine 10 mg tablet 10 mg PO DAILY PRN albuterol sulfate 90 mcg/actuation HFA aerosol inhaler 1 inh inhalation QID Orencia 125 mg/mL syringe 125 mg SUBCUT .Q7days polysaccharide iron complex 150 mg iron capsule 150 mg PO BID sitagliptin phosphate [Januvia] PO insulin aspart U-100 [Novolog FlexPen U-100 Insulin] 100 unit/mL (3 mL) insulin pen 5 unit SUBCUT TID MDD 75 units Qty: 30 2RF Rx Instructions: with SSI, max 25 units TID sucralfate [Carafate] 1 gram tablet 1 g PO QID 14 Days Qty: 56 0RF pantoprazole [Protonix] 40 mg tablet,delayed release (DR/EC) 40 mg PO BID 30 Days Qty: 60 0RF ondansetron 4 mg tablet,disintegrating 4 mg PO Q8H PRN (Reason: nausea and vomiting) Qty: 14 0RF azathioprine 50 mg tablet 50 mg PO BID Qty: 60 3RF prednisone 2.5 mg tablet 2.5 mg PO DAILY Qty: 90 1RF insulin glargine [Lantus Solostar U-100 Insulin] 100 unit/mL (3 mL) insulin pen 60 unit SUBCUT DAILY 30 Days Qty: 18 2RF dextromethorphan polistirex 30 mg/5 mL suspension,extended rel 12 hr 10 ml PO Q12H PRN (Reason: cough) Qty: 89 0RF (DME) Dexcom G6 Sensor Device See Rx Instructions .ROUTE .MEDSUPPLY Qty: 3 3RF Rx Instructions: As directed (DME) Dexcom G6 Claims Investigator Misc See Rx Instructions .ROUTE .MEDSUPPLY Qty: 1 0RF Rx Instructions: As directed (DME) Dexcom G6 Transmitter Device See Rx Instructions .ROUTE .MEDSUPPLY Qty: 1 0RF Rx Instructions: As directed leflunomide 20 mg tablet 20 mg PO DAILY Qty: 30 3RF Orencia 125 mg/mL syringe 125 mg SUBCUT .Q7days Qty: 4 3RF (DME) pen needle, diabetic [Comfort EZ [place]] 31 gauge x 5/16 needle See Rx Instructions .Route Qty: 100 11RF Rx Instructions: Use with inuslin injection 4 times daily hydrocodone-acetaminophen 5-325 mg tablet 1 tab PO Q6H PRN (Reason: pain) Qty: 14 0RF Discharge Orders: Discharge ED (Routine); Ordered 01/15/23 Ordered By: Rajendra Rojas Referrals: Kelley Quiles MD [Primary Care Provider] - Discharge Diet: Advance as tolerated and Clear Liquid Discharge Activity: Increase activity as tolerated Patient Instructions: Dehydration (ED), Abdominal Pain (ED), Enteritis (ED), Opioid Safety Activity Restrictions/Additional Instructions: Thank you for visiting the emergency department. You were seen and evaluated for abdominal pain. The most likely cause of your symptoms is related to enteritis. You were found to have mild dehydration. I will prescribe antibiotics, antinausea medication, and pain medication. Please also follow-up with your primary care provider and rheumatology. Return for uncontrolled symptoms or anything else that you are concerned about and feel needs emergency department evaluation. Coding Level of Care Code ED Yarding Supervisor for Noemi Reilly
[2023-01-14 23:37] VITALS: BP 167/106; O2SAT 97
[2023-01-14 23:40] VITALS: BP 167/106; RESP 21; O2SAT 97
[2023-01-14 23:45] VITALS: BP 167/106; RESP 18; O2SAT 95
[2023-01-14 23:50] VITALS: BP 167/106; RESP 27; O2SAT 93
[2023-01-14 23:55] VITALS: BP 167/106; RESP 23; O2SAT 94
[2023-01-15] VITALS (40 sets, daily range): BP systolic 161–185; BP diastolic 90–126; PULSE 93–100; RESP 14–32; O2SAT 86–100
[2023-01-15 00:17] LABS: Basophils # 0.1 10^3/uL (0.0-0.1); Basophils % 0.5 %; Eosinophils # 0.1 10^3/uL (0.0-0.8); Eosinophils % 1.1 %; Hematocrit 35.4 % (37.0-47.0); Hemoglobin 11.1 g/dL (11.5-15.3); Lymphocytes # 1.3 10^3/uL (0.8-4.8); Lymphocytes % 12.3 %; Mean Corpuscular HGB Conc 31.4 g/dL (30.0-36.0); Mean Corpuscular Hemoglobin 28.6 pg (28.0-34.0); Mean Corpuscular Volume 91.2 fl (81-99); Mean Platelet Volume 9.8 fL (7.4-10.4); Monocytes # 0.6 10^3/uL (0.2-0.9); Monocytes % 6.1 %; Neutrophils # 8.24 10^3/uL (1.8-7.7); Neutrophils % 78.9 %; Nucleated Red Blood Cells % 0 %; Platelet Count 251 10^3/cmm (130-400); Red Blood Count 3.88 10^6/uL (4.1-5.3); Red Cell Distribution Width 16.5 % (12.1-15.1); White Blood Count 10.4 10^3/uL (4.0-10.0)
[2023-01-15] MEDS: morphine 4 mg/mL SDV 1 mL IVP (00:24)
[2023-01-15] MEDS: ondansetron 2 mg/ML SDV 2 mL 4 MG IVP (00:24)
[2023-01-15] MEDS: aluminum-mag hydrox-simethicon 30 ML, sucralfate oral liq 1 GM PO (00:28)
[2023-01-15 00:41] LABS: Alanine Aminotransferase 24 U/L (0-33); Albumin Level 3.7 g/dL (3.5-5.2); Alkaline Phosphatase 119 U/L (35-105); Aspartate Amino Transferase 23 U/L (0-32); Blood Urea Nitrogen 23 mg/dL (6-20); Calcium 9.2 mg/dL (8.5-10.5); Carbon Dioxide 23 mmol/L (22-29); Chloride 97 mmol/L (98-107); Globulin 3.2 g/dL (1.3-4.6); Glucose 264 mg/dL (65-115); Lipase 71 U/L (13-60); Osmolality Calculated 289 mOsm/kg (285-295); Sodium 133 mmol/L (136-145); Total Bilirubin 0.2 mg/dL (0.15-1.2); Total Protein 6.9 g/dL (6.6-8.7)
[2023-01-15 00:53] LABS: HCG, Serum Qual Negative (Negative)
--- NOTE | 2023-01-15 00:56 | CTR_ITS ---
PROCEDURE INFORMATION: Exam: CT Abdomen And Pelvis Without Contrast Exam date and time: 01/15/2023 1:22 AM Age: 42 years old Clinical indication: Abdominal pain; Localized; Left upper quadrant (luq); Additional info: Epigastric and luq pain TECHNIQUE: Imaging protocol: Computed tomography of the abdomen and pelvis without contrast. Radiation optimization: All CT scans at this facility use at least one of these dose optimization techniques: automated exposure control; mA and/or kV adjustment per patient size (includes targeted exams where dose is matched to clinical indication); or iterative reconstruction. REPORTING DATA: Count of CT and Cardiac NM exams in prior 12 months: This patient has received 0 known CTs and 0 known cardiac nuclear medicine studies in the 12 months prior to the current study. COMPARISON: CT abdomen pelvis w con* [id number] 07/17/2020 6:04 PM RADIATION DOSE METRICS: Total DLP (mGy-cm): 1203.41 FINDINGS: Lungs: Mild lower lung atelectasis or scarring. Liver: Liver is large and quite steatotic. Gallbladder and bile ducts: No calcified gallstones or biliary dilation identified. Pancreas: Unremarkable with no suspicious mass. No ductal dilation. Spleen: The spleen is not enlarged. No suspicious mass is noted. Adrenal glands: Normal. No mass. Kidneys and ureters: No solid renal mass or hydronephrosis. Stomach and bowel: Few left-sided small bowel loops measure up to about 3.5 cm. No high-grade small bowel obstruction, abscess or free air. No colon wall thickening. Mild sigmoid diverticulosis. Appendix: No evidence of appendicitis. Intraperitoneal space: Unremarkable. No free air. No suspicious fluid collection. Vasculature: Small pelvic phleboliths. Mild vascular calcification. Lymph nodes: No enlarged lymph nodes. Urinary bladder: Unremarkable as visualized. Reproductive: Left ovarian 4 cm cyst. Bones/joints: Mild spine DJD. Soft tissues: No acute or suspicious finding noted. CT/CT abdomen pelvis wo con [id number] IMPRESSION: 1. Question mild left-sided small bowel ileus or enteritis. No high-grade small bowel obstruction, abscess or free air. 2. Left ovarian 4 cm cyst. 3. Large and fatty liver. Other chronic findings above.
[2023-01-15 01:26] LABS: Bilirubin Urine Neg (Negative); Blood Urine 2+ (Negative); Glucose Urine UA 1+ (Normal); Ketones Urine Negative (Negative); Leukocyte Esterase Urine Negative (Negative); Nitrate Urine Negative (Negative); Protein Urine 3+ (Negative); Urine Appearance Clear (CLEAR); Urine Color Yellow (Yellow); Urobilinogen Urine Norm (Negative); pH Urine 5 (5-7)
[2023-01-15 01:27] LABS: Add Urine Culture? No; Add Urine Microscopic? YES; Bacteria Urine TRACE /hpf; RBC Urine 0-4 /hpf (0-2); Squamous Epithelial Cell Urine 0-4 /hpf (0-5); WBC Urine 0-4 /hpf (0-5)
[2023-01-15] MEDS: acetaminophen 500 mg Tablet 1000 MG PO (03:13)
[2023-01-15] MEDS: dicyclomine 10 mg Capsule PO (03:14)
== END 2023-01-15 03:28 | disposition home or self-care (01) ==
PROVIDERS: Emergency Provider Emergency Medicine; PCP Family Medicine
DX: E86.0 Dehydration (principal); K52.9 Noninfective gastroenteritis and colitis, unspecified; R10.9 Unspecified abdominal pain
CPT/HCPCS: 36415; 74176; 80053; 81001; 83690; 84703; 85025; 96374; 96375; 99285; J2270; J2405

== ENCOUNTER 2023-01-21 13:01 | Emergency (ER) | payer MEDICAID, SELFPAY ==
[2023-01-21 13:31] VITALS: BP 150/85; PULSE 87; RESP 18; TEMP 36.8; O2SAT 97
[2023-01-21 16:52] LABS: Basophils # 0.1 10^3/uL (0.0-0.1); Basophils % 0.5 %; Eosinophils # 0.1 10^3/uL (0.0-0.8); Eosinophils % 1.2 %; Hematocrit 38.6 % (37.0-47.0); Hemoglobin 12.3 g/dL (11.5-15.3); Lymphocytes # 1.6 10^3/uL (0.8-4.8); Mean Corpuscular HGB Conc 31.9 g/dL (30.0-36.0); Mean Corpuscular Hemoglobin 29.1 pg (28.0-34.0); Mean Corpuscular Volume 91.3 fl (81-99); Mean Platelet Volume 9.7 fL (7.4-10.4); Monocytes # 0.7 10^3/uL (0.2-0.9); Monocytes % 7.9 %; Neutrophils # 6.72 10^3/uL (1.8-7.7); Neutrophils % 72.2 %; Nucleated Red Blood Cells % 0 %; Platelet Count 299 10^3/cmm (130-400); Red Blood Count 4.23 10^6/uL (4.1-5.3); Red Cell Distribution Width 16.5 % (12.1-15.1); White Blood Count 9.3 10^3/uL (4.0-10.0)
[2023-01-21 17:09] LABS: Alanine Aminotransferase 29 U/L (0-33); Albumin Level 3.8 g/dL (3.5-5.2); Alkaline Phosphatase 119 U/L (35-105); Aspartate Amino Transferase 29 U/L (0-32); Blood Urea Nitrogen 19 mg/dL (6-20); Calcium 9.8 mg/dL (8.5-10.5); Carbon Dioxide 23 mmol/L (22-29); Chloride 98 mmol/L (98-107); Globulin 3.4 g/dL (1.3-4.6); Glucose 227 mg/dL (65-115); Lipase 56 U/L (13-60); Osmolality Calculated 291 mOsm/kg (285-295); Sodium 136 mmol/L (136-145); Total Bilirubin 0.2 mg/dL (0.15-1.2); Total Protein 7.2 g/dL (6.6-8.7)
--- NOTE | 2023-01-21 18:46 | USR_ITS ---
PROCEDURE INFORMATION: Exam: US Abdomen, Limited; Right Upper Quadrant Exam date and time: 01/21/2023 7:05 PM Age: 42 years old Clinical indication: Abdominal pain; Flank; Left upper quadrant (luq); Patient HX: Normal tbili = 0.2, normal ast = 29, normal alt = 29, elevated alkphos = 119, normal lipase = 56; Additional info: Abd pain TECHNIQUE: Imaging protocol: Real time ultrasound of the abdomen with image documentation. Limited exam focused on the right upper quadrant. COMPARISON: CT abdomen pelvis wo con [id number] 01/15/2023 1:22 AM FINDINGS: Liver: Liver enlarged to 23 cm with hepatic steatosis. Gallbladder: Normal. No gallstones. There is no gallbladder wall thickening. Biliary ducts: Normal. No stones. No dilation. Pancreas: Visualized pancreas is unremarkable. Right kidney: Normal. No mass. No hydronephrosis. US/US gall bladder [id number] IMPRESSION: 1. Liver enlarged to 23 cm with hepatic steatosis. 2. Negative for cholelithiasis or cholecystitis.
--- NOTE | 2023-01-21 18:51 | W.ED.ABDPA2 ---
HPI - Abdominal Pain General: Chief Complaint: Abdominal Pain Stated Complaint: upper abd pain Time Seen by Provider: 01/21/23 18:36 Source: patient Mode of arrival: ambulatory Limitations: no limitations History of Present Illness: 42-year-old female who states she been having epigastric and left upper quadrant pain for 2 weeks she was seen here a week ago had normal work-up and a CT scan that showed an enteritis she states she continued to have some pain had vomiting her PCP does not appear concerned of pancreatitis patient denies any fever she rates her pain a 7 out of 10 currently denies any worsening improving factors. 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 High risk medication use History of hypercholesterolemia History of psoriasis HLA B27 (HLA B27 positive) Hx of migraines Hypertension Immunization counseling Inflammatory back pain Joint pain Muscle pain Psoriatic arthritis Skin rash Small vessel vasculitis Vasculitis Surgical History History of tubal ligation S/P emergency tracheotomy for assistance in breathing Family History Other Cancer Diabetes Hyperlipidemia Psoriatic arthritis Stroke Denies family history of Rheumatoid arthritis Lupus CAD (coronary artery disease) Chronic kidney disease (CKD) Lung disease Hypertension Social History Smoking and tobacco status: former smoker (Quit 2015,) Quit status (tobacco): has quit using tobacco Year quit tobacco: 2015 Former quit date comment: 1ppd X 19 years, started at age 17 years Alcohol intake: current Alcohol intake frequency: holidays/special occasions only Physical Exam Const: COMMON NORMALS: no acute distress, patient oriented x3 and healthy appearing HENMT: COMMON NORMALS: normocephalic and atraumatic HEAD & SCALP: normocephalic and atraumatic Eye: COMMON NORMALS: conjunctivae normal CONJUNCTIVA: Yes conjunctivae normal Neck/C-Spine: COMMON NORMALS: full ROM and supple Chest: COMMONS NORMALS: normal inspection of the chest Resp: COMMON NORMALS: normal respiratory effort, No retractions, No use of accessory muscles and clear to auscultation bilaterally AUSCULTATION: clear to auscultation bilaterally Cardio: COMMON NORMALS: regular rate, regular rhythm and No murmurs present (Cardio) RATE: regular rate RHYTHM: regular rhythm GI: COMMON NORMALS: Normal to inspection, nondistended, normoactive bowel sounds present, Soft to palpation, non-tender and no masses PALPATION: Yes Soft to palpation Extremity: COMMON NORMALS: normal to inspection and full ROM Neuro: COMMON NORMALS: patient oriented x3, moves all extremities and no focal motor deficits Psych: COMMON NORMALS: mental status grossly normal, Normal thought process present and cooperative THOUGHT PROCESS: Normal thought process present Skin: COMMON NORMALS: no rashes or lesions noted and no wounds GENERAL SKIN EXAM: no rashes or lesions noted Course Vital Signs: Vital signs: Vital Signs Temperature 98.2 F 01/21/23 13:31 Pulse Rate 87 01/21/23 13:31 Respiratory Rate 18 01/21/23 13:31 Blood Pressure 150/85 01/21/23 13:31 Pulse Oximetry 97 01/21/23 13:31 Oxygen Delivery Me thod Room Air 01/21/23 13:31 MDM - Abdominal Pain Medical Decision Making Patient presents here with abdominal pain epigastric and nature could be a gastritis she had recent work-up ultrasound here is negative blood works negative here we will start her on Protonix pain meds nausea medicine we will get her follow-up with surgery she is return if worsening. Medical Records I reviewed the patient's medical records. Lab Data I reviewed the patient's lab results. 01/21/23 16:37 01/21/23 16:37 Labs/Radiology: Radiology Impressions Gallbladder Ultrasound 01/21/23 18:46 IMPRESSION: 1. Liver enlarged to 23 cm with hepatic steatosis. 2. Negative for cholelithiasis or cholecystitis. Laboratory Results WBC 9.3 10^3/uL (4.0-10.0) 01/21/23 16:37 RBC 4.23 10^6/uL (4.1-5.3) 01/21/23 16:37 Hgb 12.3 g/dL (11.5-15.3) 01/21/23 16:37 Hct 38.6 % (37.0-47.0) 01/21/23 16:37 MCV 91.3 fl (81-99) 01/21/23 16:37 MCH 29.1 pg (28.0-34.0) 01/21/23 16:37 MCHC 31.9 g/dL (30.0-36.0) 01/21/23 16:37 RDW 16.5 % (12.1-15.1) H 01/21/23 16:37 Plt Count 299 10^3/cmm (130-400) 01/21/23 16:37 MPV 9.7 fL (7.4-10.4) 01/21/23 16:37 Neut % (Auto) 72.2 % 01/21/23 16:37 Lymph % (Auto) 17.0 % 01/21/23 16:37 [place] % (Auto) 7.9 % 01/21/23 16:37 Eos % (Auto) 1.2 % 01/21/23 16:37 Baso % (Auto) 0.5 % 01/21/23 16:37 Neut # (Auto) 6.72 10^3/uL (1.8-7.7) 01/21/23 16:37 Lymph # (Auto) 1.6 10^3/uL (0.8-4.8) 01/21/23 16:37 [place] # (Auto) 0.7 10^3/uL (0.2-0.9) 01/21/23 16:37 Eos # (Auto) 0.1 10^3/uL (0.0-0.8) 01/21/23 16:37 Baso # (Auto) 0.1 10^3/uL (0.0-0.1) 01/21/23 16:37 Nucleated RBC % (auto) 0 % 01/21/23 16:37 Nucleated RBCs # 0.0 /100WBC 01/21/23 16:37 Sodium 136 mmol/L (136-145) 01/21/23 16:37 Potassium 4.0 mmol/L (3.5-5.1) 01/21/23 16:37 Chloride 98 mmol/L (98-107) 01/21/23 16:37 Carbon Dioxide 23 mmol/L (22-29) 01/21/23 16:37 Anion Gap 19.0 (5-19) 01/21/23 16:37 BUN 19 mg/dL (6-20) 01/21/23 16:37 Creatinine 1.4 mg/dL (0.5-0.9) H 01/21/23 16:37 GFR Calculation 41.0 mL/min (90-130) L 01/21/23 16:37 Glucose 227 mg/dL (65-115) H 01/21/23 16:37 Calculated Osmolality 291 mOsm/kg (285-295) 01/21/23 16:37 Calcium 9.8 mg/dL (8.5-10.5) 01/21/23 16:37 Total Bilirubin 0.2 mg/dL (0.15-1.2) 01/21/23 16:37 AST 29 U/L (0-32) 01/21/23 16:37 ALT 29 U/L (0-33) 01/21/23 16:37 Alkaline Phosphatase 119 U/L (35-105) H 01/21/23 16:37 Total Protein 7.2 g/dL (6.6-8.7) 01/21/23 16:37 Albumin 3.8 g/dL (3.5-5.2) 01/21/23 16:37 Globulin 3.4 g/dL (1.3-4.6) 01/21/23 16:37 Lipase 56 U/L (13-60) 01/21/23 16:37 HCG, Qual Negative (Negative) 01/21/23 18:00 Urine Color Yellow (Yellow) 01/21/23 19:42 Urine Appearance Clear (CLEAR) 01/21/23 19:42 Urine pH 5 (5-7) 01/21/23 19:42 Ur Specific [place] 1.020 (1.005-1.030) 01/21/23 19:42 Urine Protein 3+ (Negative) H 01/21/23 19:42 Urine Glucose (UA) Trace (Normal) H 01/21/23 19:42 Urine Ketones Negative (Negative) 01/21/23 19:42 Urine Blood 2+ (Negative) H 01/21/23 19:42 Urine Nitrate Negative (Negative) 01/21/23 19:42 Urine Bilirubin Neg (Negative) 01/21/23 19:42 Urine Urobilinogen Norm mg/dL (Negative) 01/21/23 19:42 Ur Leukocyte Esterase Negative (Negative) 01/21/23 19:42 Urine RBC 0-4 /hpf (0-2) H 01/21/23 19:42 Urine WBC 0-4 /hpf (0-5) H 01/21/23 19:42 Ur Squamous Epith Cells 0-4 /hpf (0-5) H 01/21/23 19:42 Amorphous Sediment Not Reportable 01/21/23 19:42 Urine Bacteria None /hpf (NONE) 01/21/23 19:42 Fine Granular Casts 0-4 /lpf H 01/21/23 19:42 Discharge Plan Discharge Patient Disposition: Home Clinical Impression: Abdominal pain Condition: Stable Prescriptions: New hydrocodone-acetaminophen 5-325 mg tablet 1 tab PO Q6H PRN (Reason: pain) Qty: 14 0RF Protonix 40 mg tablet,delayed release (DR/EC) 40 mg PO DAILY Qty: 60 0RF ondansetron 4 mg tablet,disintegrating 4 mg PO Q6H PRN (Reason: nausea and vomiting) Qty: 14 0RF No Action cetirizine 10 mg tablet 10 mg PO DAILY polysaccharide iron complex 150 mg iron capsule 150 mg PO DAILY cholecalciferol (vitamin D3) 25 mcg (1,000 unit) capsule 25 mcg PO DAILY magnesium oxide 400 mg magnesium tablet 400 mg PO BID losartan 25 mg tablet 50 mg PO DAILY azathioprine 50 mg tablet 50 mg PO DAILY metoprolol succinate 50 mg tablet extended release 24 hr 50 mg PO DAILY magnesium oxide 400 mg magnesium tablet 400 mg PO BID cholecalciferol (vitamin D3) 25 mcg (1,000 unit) capsule 2,000 unit PO DAILY cetirizine 10 mg tablet 10 mg PO DAILY PRN albuterol sulfate 90 mcg/actuation HFA aerosol inhaler 1 inh inhalation QID Orencia 125 mg/mL syringe 125 mg SUBCUT .Q7days polysaccharide iron complex 150 mg iron capsule 150 mg PO BID sitagliptin phosphate [Januvia] PO azathioprine 50 mg tablet 50 mg PO BID Qty: 60 3RF prednisone 2.5 mg tablet 2.5 mg PO DAILY Qty: 90 1RF insulin glargine [Lantus Solostar U-100 Insulin] 100 unit/mL (3 mL) insulin pen 60 unit SUBCUT DAILY 30 Days Qty: 18 2RF dextromethorphan polistirex 30 mg/5 mL suspension,extended rel 12 hr 10 ml PO Q12H PRN (Reason: cough) Qty: 89 0RF insulin aspart U-100 [Novolog FlexPen U-100 Insulin] 100 unit/mL (3 mL) insulin pen 5 unit SUBCUT TID Qty: 15 2RF Rx Instructions: TID with meal as directed by Dr (MARIANA) Dexcom G6 Sensor Device See Rx Instructions .ROUTE .MEDSUPPLY Qty: 3 3RF Rx Instructions: As directed (MARIANA) Dexcom G6 Supervisor Packing Misc See Rx Instructions .ROUTE .MEDSUPPLY Qty: 1 0RF Rx Instructions: As directed (MARIANA) Dexcom G6 Transmitter Device See Rx Instructions .ROUTE .MEDSUPPLY Qty: 1 0RF Rx Instructions: As directed leflunomide 20 mg tablet 20 mg PO DAILY Qty: 30 3RF Orencia 125 mg/mL syringe 125 mg SUBCUT .Q7days Qty: 4 3RF (MARIANA) pen needle, diabetic [Comfort EZ Pen [place]] 31 gauge x 5/16 needle See Rx Instructions .Route Qty: 100 11RF Rx Instructions: Use with inuslin injection 4 times daily Reglan 10 mg tablet 10 mg PO Q4H PRN (Reason: nausea and vomiting) Qty: 20 0RF oxycodone 5 mg tablet 5 mg PO Q4H PRN (Reason: pain) Qty: 10 0RF amoxicillin-pot clavulanate 875-125 mg tablet 1 tab PO BID Qty: 20 0RF Discharge Orders: Discharge ED (Routine); Ordered 01/21/23 Ordered By: Jaqueline Bravo Referrals: Alex Alanis MD [Physician] - 1-3 days Kelley Quiles MD [Primary Care Provider] - Discharge Diet: Advance as tolerated Discharge Activity: Resume usual activity Patient Instructions: Abdominal Pain (ED), Opioid Safety Coding Level of Care Code ED Service Mechanic for Noemi Reilly
[2023-01-21 19:04] LABS: HCG, Serum Qual Negative (Negative)
[2023-01-21] MEDS: HYDROcodone-acetaminophen 5-325 mg Tablet 1 TAB PO (19:41)
[2023-01-21] MEDS: ondansetron 4 MG Tablet PO (19:41)
[2023-01-21 20:08] LABS: Glucose Urine UA Trace (Normal); Protein Urine 3+ (Negative); Urine Appearance Clear (CLEAR); Urine Color Yellow (Yellow); pH Urine 5 (5-7)
[2023-01-21 20:09] LABS: Add Urine Culture? No; Add Urine Microscopic? YES; Bilirubin Urine Neg (Negative); Blood Urine 2+ (Negative); Fine Granular Casts Urine 0-4 /lpf; Ketones Urine Negative (Negative); Leukocyte Esterase Urine Negative (Negative); Nitrate Urine Negative (Negative); RBC Urine 0-4 /hpf (0-2); Squamous Epithelial Cell Urine 0-4 /hpf (0-5); Urobilinogen Urine Norm (Negative); WBC Urine 0-4 /hpf (0-5)
--- NOTE | 2023-01-22 07:55 | DCPLANNER ---
Addendum entered by Alea Mccord 02/05/23 10:32: Patient attended appointment scheduled with general surgery Addendum entered by Alea Mccord 01/28/23 08:31: Patient has a follow up appointment scheduled for Thursday, February 04, 2023 at 1:[address] Gonzalez at general surgery. Original Note: legal services manager had message to schedule a follow up appointment for patient with general surgery. legal services manager sent patients information to the front office staff at general surgery. Patients information will be printed and reviewed. Clinic will call patient with appointment information.
== END 2023-01-21 20:23 | disposition home or self-care (01) ==
PROVIDERS: Emergency Medicine; Emergency Provider Emergency Medicine; PCP Family Medicine
DX: R10.13 Epigastric pain (principal); I10 Essential (primary) hypertension; Z79.899 Other long term (current) drug therapy; Z87.891 Personal history of nicotine dependence
CPT/HCPCS: 36415; 76705; 80053; 81001; 83690; 84703; 85025; 99284; Q0162

== ENCOUNTER → 2023-02-04 14:57 | Outpatient (BNVA) | payer MEDICAID, SELFPAY | PROVIDERS: PCP Family Medicine; Visit Provider Surgery | DX: R10.9 Unspecified abdominal pain (principal); M79.7 Fibromyalgia | CPT/HCPCS: 99203 ==

== ENCOUNTER → 2023-02-11 09:47 | Outpatient (BNVA) | payer MEDICAID, SELFPAY | PROVIDERS: PCP Family Medicine; Visit Provider Family Medicine | DX: M79.7 Fibromyalgia; E11.40 Type 2 diabetes mellitus with diabetic neuropathy, unspecified; D63.1 Anemia in chronic kidney disease; J44.9 Chronic obstructive pulmonary disease, unspecified; N18.32 Chronic kidney disease, stage 3b; E11.22 Type 2 diabetes mellitus with diabetic chronic kidney disease; Z79.4 Long term (current) use of insulin; I77.6 Arteritis, unspecified; L40.50 Arthropathic psoriasis, unspecified; Z79.899 Other long term (current) drug therapy; R53.83 Other fatigue; R10.9 Unspecified abdominal pain; G47.33 Obstructive sleep apnea (adult) (pediatric); I10 Essential (primary) hypertension | CPT/HCPCS: 80053; 80061; 83036; 83721; 85025; 85651; 86140 ==

== ENCOUNTER → 2023-02-17 13:53 | Outpatient (BNVA) | payer MEDICAID, SELFPAY | PROVIDERS: PCP Family Medicine; Referring Provider Internal Medicine Rheumatology; Visit Provider Internal Medicine | DX: E11.40 Type 2 diabetes mellitus with diabetic neuropathy, unspecified (principal); E11.22 Type 2 diabetes mellitus with diabetic chronic kidney disease; N18.32 Chronic kidney disease, stage 3b; Z79.4 Long term (current) use of insulin; E78.2 Mixed hyperlipidemia; Z79.84 Long term (current) use of oral hypoglycemic drugs | CPT/HCPCS: 99204 ==

== ENCOUNTER → 2023-03-05 13:20 | Outpatient (BNVA) | payer MEDICAID, SELFPAY | PROVIDERS: PCP Family Medicine; Visit Provider Internal Medicine Rheumatology | DX: M47.816 Spondylosis without myelopathy or radiculopathy, lumbar region (principal); N05.9 Unspecified nephritic syndrome with unspecified morphologic changes; I77.89 Other specified disorders of arteries and arterioles; L40.50 Arthropathic psoriasis, unspecified; Z79.899 Other long term (current) drug therapy; Z71.89 Other specified counseling; M79.7 Fibromyalgia; Z15.89 Genetic susceptibility to other disease | CPT/HCPCS: 99214 ==

== ENCOUNTER 2023-03-25 08:57 | Day surgery (SDC) | payer MEDICAID, SELFPAY ==
[2023-03-24 11:01] VITALS: BMI 48.8
--- NOTE | 2023-03-25 09:21 | P.ANESASSM_ITS ---
Pre-Anesthetic Assessment Height/Weight: Height 1.52 m Weight 113.398 kg Preop Diagnosis: Abdominal Pain Operation Date: 03/25/23 10:00 Proposed Procedures p EGD 13373,R10.9(Not Applicable) - Shivam Gonzalez DO Familial anesthetic complications: none Last intake: meal- 03/24 drink 03/24 Social No alcohol and No tobacco Exam alert, oriented x 3, clear to auscultation bilaterally and regular rate & rhythm Airway Submandibular: within normal limits Cervical ROM: within normal limits Mallampati: Class III Dentition: full Comments: Comments: April 2021 COVID resulted in 30 day coma per patient resulting in trach (non-emergent) and kidney failure. Pulmonary Asthma and Sleep Apnea (CPAP compliant) CV/HEM Congestive Heart Failure (patient is unsure), Deep Vein Thrombosis (PE), Hypertension and Palpitations ECHO 2022: Trace TR, EF 60% Chronic Renal Insufficiency (stage 3) Hepatic enlarged GI Gastroesophageal Reflux Disease Metabolic Diabetes Mellitus, Hyperlipidemia, Morbid Obesity and Thyroid Disease Musc/skel Lower Back Pain, Rheumatoid Arthritis and Weakness (PRN CANE AND WALKER) Neuropsych Anxiety and Depression Anesthetic Plan ASA status: 3 Anesthesia: MAC Medications/Allergies Home Medications Medication Instructions Recorded Confirmed Last Taken Type cetirizine 10 mg tablet 10 mg PO DAILY 09/10/21 03/24/23 03/24/23 History magnesium oxide 400 mg PO BID 01/21/22 03/24/23 03/24/23 History albuterol sulfate 90 mcg/actuation 1 inh inhalation QID 05/12/22 03/24/23 Unknown History aerosol inhaler cholecalciferol (vitamin D3) 25 2,000 unit PO DAILY 05/12/22 03/24/23 03/24/23 History mcg (1,000 unit) capsule metoprolol succinate 50 mg 75 mg PO DAILY 05/12/22 03/24/23 03/23/23 History tablet,extended release 24 hr azathioprine 50 mg tablet 50 mg PO BID [place] Immune 11/20/22 03/24/23 03/24/23 Rx Glomerulo Nephritis #60 tabs losartan 25 mg tablet 50 mg PO DAILY 12/16/22 03/24/23 03/23/23 History polysaccharide iron complex 150 mg 150 mg PO BID 12/16/22 03/24/23 03/24/23 History iron capsule pen needle, diabetic 31 gauge x #100 ea 01/12/23 03/05/23 Unknown Rx 5/16 (Comfort EZ Pen [place]) pantoprazole 40 mg tablet,delayed 40 mg PO BID 30 days #60 tabs 01/27/23 03/24/23 03/24/23 Rx release (Protonix) pregabalin 25 mg capsule 25 mg PO DAILY 30 days #30 caps 02/16/23 03/24/23 03/23/23 Rx atorvastatin 40 mg tablet 40 mg PO DAILY #90 tabs 02/17/23 03/24/23 03/24/23 Rx blood-glucose meter,continuous #1 ea 02/17/23 03/05/23 Unknown Rx (Dexcom G7 Pediatric Speech Therapist) blood-glucose sensor (Dexcom G7 #3 ea 02/17/23 03/05/23 Unknown Rx Sensor device) prednisone 2.5 mg tablet 2.5 mg PO DAILY #90 tabs 03/05/23 03/24/23 03/24/23 Rx blood-glucose meter,continuous #1 ea 03/23/23 Unknown Rx (Dexcom G6 Pediatric Speech Therapist) blood-glucose sensor (Dexcom G6 #3 ea 03/23/23 Unknown Rx Sensor device) blood-glucose transmitter (Dexcom #1 ea 03/23/23 Unknown Rx G6 Transmitter device) insulin aspart U-100 100 unit/mL 55 unit SUBCUT TID 03/24/23 03/24/23 03/24/23 History (3 mL) subcutaneous pen (Novolog FlexPen U-100 Insulin aspart) insulin glargine 100 unit/mL (3 80 unit SUBCUT DAILY 03/24/23 03/24/23 03/24/23 History mL) subcutaneous pen (Lantus Solostar U-100 Insulin) ixekizumab 80 mg/mL subcutaneous See Rx Instructions SUBCUT 03/24/23 Unknown Rx auto-injector (Taltz Autoinjector .COMPLEX #3 mL (3 Pack)) ixekizumab 80 mg/mL subcutaneous 80 mg SUBCUT .Q4 weeks #1 mL 03/24/23 Unknown Rx auto-injector (Taltz Autoinjector) Allergies Allergy/AdvReac Type Severity Reaction Status Date / Time adhesive Allergy Mild ALGY-Rash Verified 03/24/23 10:55 aspirin Allergy Mild Hives Verified 03/24/23 10:55 cephalexin [From Keflex] Allergy Mild Hives Verified 03/24/23 10:55 Latex, Natural Rubber Allergy Mild Rash itch Verified 03/24/23 10:55 naproxen [From Aleve] Allergy Mild rash Verified 03/24/23 10:55 Sulfa (Sulfonamide Allergy Mild Hives Verified 03/24/23 10:55 Antibiotics) latex Allergy Unknown UNKNOWN Verified 03/24/23 10:55 NSAIDS (Non-Steroidal Allergy Unknown UNKNOWN Verified 03/24/23 10:55 Anti-Inflamma ibuprofen [From Motrin] Allergy rash Verified 03/24/23 10:55 tramadol AdvReac Mild Migraines Verified 03/24/23 10:55 PFSH Anesthesia Medical History Encounter for screening for other viral diseases Enthesitis Fibromyalgia GERD (gastroesophageal reflux disease) 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 High risk medication use History of hypercholesterolemia History of psoriasis HLA B27 (HLA B27 positive) Hx of migraines Hypertension Immunization counseling Inflammatory back pain Joint pain Muscle pain Psoriatic arthritis Skin rash Small vessel vasculitis Vasculitis Surgical History History of tubal ligation S/P emergency tracheotomy for assistance in breathing Family History Other Cancer Diabetes Hyperlipidemia Psoriatic arthritis Stroke Denies family history of Rheumatoid arthritis Lupus CAD (coronary artery disease) Chronic kidney disease (CKD) Lung disease Hypertension Social History Smoking and tobacco status: former smoker (Quit 2015,) Quit status (tobacco): has quit using tobacco Year quit tobacco: 2016 Former quit date comment: 1ppd X 19 years, started at age 17 years Alcohol intake: current Alcohol intake frequency: holidays/special occasions only Female Reproductive History Date of last menstrual period: 03/01/23 Data Anesthesia Cardiac Studies: Echocardiogram 10/28/22 Cardiac Event Monitor 11/03/22
[2023-03-25 09:34] VITALS: BMI 48.8
[2023-03-25 09:35] VITALS: BP 179/106; PULSE 88; RESP 18; TEMP 36.7; O2SAT 96
[2023-03-25] MEDS: sodium chloride 0.9% 1,000 ML 30 ML IV (09:39)
[2023-03-25 09:57] LABS: Glucose Point of Care 311 mg/dL (70-110)
--- NOTE | 2023-03-25 09:58 | PM.HP ---
Providers/Chief Complaint Primary Care Provider: Kelley Quiles MD Chief Complaint: R10.9 History of Present Illness Amna De Guzman is a 43 year old female Review of Systems General: Reports: 10 or more systems reviewed and unremarkable except in HPI and below Medications/Allergies Home Medications Medication Instructions Recorded Confirmed Last Taken Type cetirizine 10 mg tablet 10 mg PO DAILY 09/10/21 03/24/23 03/24/23 History magnesium oxide 400 mg PO BID 01/21/22 03/24/23 03/24/23 History albuterol sulfate 90 mcg/actuation 1 inh inhalation QID 05/12/22 03/24/23 Unknown History aerosol inhaler cholecalciferol (vitamin D3) 25 2,000 unit PO DAILY 05/12/22 03/24/23 03/24/23 History mcg (1,000 unit) capsule metoprolol succinate 50 mg 75 mg PO DAILY 05/12/22 03/24/23 03/23/23 History tablet,extended release 24 hr azathioprine 50 mg tablet 50 mg PO BID [place] Immune 11/20/22 03/24/23 03/24/23 Rx Glomerulo Nephritis #60 tabs losartan 25 mg tablet 50 mg PO DAILY 12/16/22 03/24/23 03/23/23 History polysaccharide iron complex 150 mg 150 mg PO BID 12/16/22 03/24/23 03/24/23 History iron capsule pen needle, diabetic 31 gauge x #100 ea 01/12/23 03/05/23 Unknown Rx 5/16 (Comfort EZ Pen [place]) pantoprazole 40 mg tablet,delayed 40 mg PO BID 30 days #60 tabs 01/27/23 03/24/23 03/24/23 Rx release (Protonix) pregabalin 25 mg capsule 25 mg PO DAILY 30 days #30 caps 02/16/23 03/24/23 03/23/23 Rx atorvastatin 40 mg tablet 40 mg PO DAILY #90 tabs 02/17/23 03/24/23 03/24/23 Rx blood-glucose meter,continuous #1 ea 02/17/23 03/05/23 Unknown Rx (Dexcom G7 Curtain Feller Blindstitch) blood-glucose sensor (Dexcom G7 #3 ea 02/17/23 03/05/23 Unknown Rx Sensor device) prednisone 2.5 mg tablet 2.5 mg PO DAILY #90 tabs 03/05/23 03/24/23 03/24/23 Rx blood-glucose meter,continuous #1 ea 03/23/23 Unknown Rx (Dexcom G6 Curtain [place]eller Blindstitch) blood-glucose sensor (Dexcom G6 #3 ea 03/23/23 Unknown Rx Sensor device) blood-glucose transmitter (Dexcom #1 ea 03/23/23 Unknown Rx G6 Transmitter device) insulin aspart U-100 100 unit/mL 55 unit SUBCUT TID 03/24/23 03/24/23 03/24/23 History (3 mL) subcutaneous pen (Novolog FlexPen U-100 Insulin aspart) insulin glargine 100 unit/mL (3 80 unit SUBCUT DAILY 03/24/23 03/24/23 03/24/23 History mL) subcutaneous pen (Lantus Solostar U-100 Insulin) ixekizumab 80 mg/mL subcutaneous See Rx Instructions SUBCUT 03/24/23 Unknown Rx auto-injector (Taltz Autoinjector .COMPLEX #3 mL (3 Pack)) ixekizumab 80 mg/mL subcutaneous 80 mg SUBCUT .Q4 weeks #1 mL 03/24/23 Unknown Rx auto-injector (Taltz Autoinjector) Allergies Allergy/AdvReac Type Severity Reaction Status Date / Time adhesive Allergy Mild ALGY-Rash Verified 03/24/23 10:55 aspirin Allergy Mild Hives Verified 03/24/23 10:55 cephalexin [From Keflex] Allergy Mild Hives Verified 03/24/23 10:55 Latex, Natural Rubber Allergy Mild Rash itch Verified 03/24/23 10:55 naproxen [From Aleve] Allergy Mild rash Verified 03/24/23 10:55 Sulfa (Sulfonamide Allergy Mild Hives Verified 03/24/23 10:55 Antibiotics) latex Allergy Unknown UNKNOWN Verified 03/24/23 10:55 NSAIDS (Non-Steroidal Allergy Unknown UNKNOWN Verified 03/24/23 10:55 Anti-Inflamma ibuprofen [From Motrin] Allergy rash Verified 03/24/23 10:55 tramadol AdvReac Mild Migraines Verified 03/24/23 10:55 PFSH Acute PFSH: Medical History Encounter for screening for other viral diseases Enthesitis Fibromyalgia GERD (gastroesophageal reflux disease) 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 High risk medication use History of hypercholesterolemia History of psoriasis HLA B27 (HLA B27 positive) Hx of migraines Hypertension Immunization counseling Inflammatory back pain Joint pain Muscle pain Psoriatic arthritis Skin rash Small vessel vasculitis Vasculitis Surgical History History of tubal ligation S/P emergency tracheotomy for assistance in breathing Family History Other Cancer Diabetes Hyperlipidemia Psoriatic arthritis Stroke Denies family history of Rheumatoid arthritis Lupus CAD (coronary artery disease) Chronic kidney disease (CKD) Lung disease Hypertension Social History Smoking and tobacco status: former smoker (Quit 2015,) Quit status (tobacco): has quit using tobacco Year quit tobacco: 2015 Former quit date comment: 1ppd X 19 years, started at age 17 years Alcohol intake: current Alcohol intake frequency: holidays/special occasions only Female Reproductive History: Date of last menstrual period: 03/01/23 Vitals/I&O/Wt Last Vital Signs Temp 98.0 F 03/25/23 09:35 Pulse 88 03/25/23 09:35 Resp 18 03/25/23 09:35 BP 179/106 03/25/23 09:35 Pulse Ox 96 03/25/23 09:35 O2 Del Method Room Air 03/25/23 09:35 Weight last 48 hrs Weight 250 lb Weight 250 lb A&P Assessment and plan (1) Abdominal pain: Plan EGD Attestations Medical Necessity Statement*: HOME Coding Level of Care Code Acute Code for Chg Fwd Diagnoses Abdominal pain R10.9
[2023-03-25 10:05] LABS: OR HCG Qualitative Urine Negative (Negative)
[2023-03-25 10:12] VITALS: BP 160/98; PULSE 93; RESP 18; TEMP 36.3; O2SAT 93
[2023-03-25 10:17] VITALS: BP 159/89; PULSE 96; RESP 18; O2SAT 93
--- NOTE | 2023-03-25 10:25 | ANE.PACU2 ---
Inpatient post-anesthesia follow up: Airway intact: Yes Vital signs: Temperature 97.4 F Pulse Rate 80 Respiratory Rate 18 Blood Pressure 145/100 Pulse Oximetry 94 Oxygen Delivery Me thod Room Air Oxygen Flow Rate Fraction of Inspir ed Oxygen Hydration adequate: Yes Nausea and vomiting: No Pain level: 1 Mental status: Baseline
[2023-03-25 10:27] VITALS: BP 145/100; PULSE 80; RESP 18; O2SAT 94
== END 2023-03-25 10:42 | disposition home or self-care (01) ==
PROVIDERS: Anesthesiology; PCP Family Medicine; Visit Provider Surgery
PROC: 0DJ08ZZ Inspection of Upper Intestinal Tract, Via Natural or Artificial Opening Endoscopic (ICD-10-PCS; CPT 43235; principal; 2023-03-25 10:00)
DX: R10.9 Unspecified abdominal pain (principal); M79.7 Fibromyalgia; Z87.891 Personal history of nicotine dependence; I11.0 Hypertensive heart disease with heart failure; I50.9 Heart failure, unspecified; Z86.718 Personal history of other venous thrombosis and embolism; K21.9 Gastro-esophageal reflux disease without esophagitis; E78.5 Hyperlipidemia, unspecified; E66.01 Morbid (severe) obesity due to excess calories; Z68.42 Body mass index [BMI] 45.0-49.9, adult; M06.9 Rheumatoid arthritis, unspecified
CPT/HCPCS: 36416; 43239; 81025; 82962; 84703; 88305; 88342; J2250; J2405; J2704; J7030

== ENCOUNTER → 2023-04-15 15:19 | Outpatient (BNVA) | payer MEDICAID, SELFPAY | PROVIDERS: PCP Family Medicine; Visit Provider Surgery | DX: Z09 Encounter for follow-up examination after completed treatment for conditions other than malignant neoplasm (principal); R10.9 Unspecified abdominal pain; R11.2 Nausea with vomiting, unspecified; R19.7 Diarrhea, unspecified | CPT/HCPCS: 99214 ==

== ENCOUNTER 2023-04-24 10:09 | Outpatient (CLI) | payer MEDICAID, SELFPAY ==
--- NOTE | 2023-04-24 10:00 | NM_ITS ---
WS: [id number] NUCLEAR MEDICINE HIDA SCAN WITH GALLBLADDER EJECTION FRACTION HISTORY: abdominal pain COMPARISON: Gallbladder ultrasound 01/21/2023 TECHNIQUE: The patient was intravenously injected with 6.9 mCi of TC99m Mebrofenin. Immediate imaging over the right upper quadrant was followed by 5 minute image and additional images for a total of 60 minutes. Normal uptake throughout the liver. The liver is enlarged. Activity identified in the gallbladder at 15 minutes and well distended by 60 minutes. Activity in the proximal small bowel was seen by 10 minutes. Good washout of the radiotracer from the liver by 60 minutes. The patient then drank 8 ounces of Ensure Plus. Ejection fraction at 60 minutes was 39%. Normal GB ej ection fraction is 35-75%. Post fatty meal symptoms: None. IMPRESSION: 1. Normal HIDA scan. 2. Normal gallbladder ejection fraction. Low normal at 39%.
== END 2023-04-24 10:10 | disposition home or self-care (01) ==
PROVIDERS: PCP Family Medicine; Visit Provider Surgery
DX: R10.9 Unspecified abdominal pain (principal)
CPT/HCPCS: 78227; A9537

== ENCOUNTER 2023-05-13 12:49 | Outpatient (CLI) | payer MEDICAID, SELFPAY ==
--- NOTE | 2023-05-13 13:00 | USCV_ITS ---
Amna De Guzman Age: 43 Gender: F : 1980 Exam Date: 05/13/2023 13:03 Ordering Phys: Kevin Anne MD (Andy) ([email or web address] [place] Technologist: CT Exam Location: [facility] [place] Indication: stenosis Risk Factors: Previous Vascular Surgery: Right Brachial BP: / Left Brachial BP: / Right Left Velocity (cm/s) Spectral Plaque Velocity (cm/s) Spectral Plaque Syst/Diast Broadening Syst/Diast Broadening 115.80/20.90 Prox CCA 104.90/ 28.00 105.50/34.50 Mid CCA 95.10 / 25.60 92.70/ 24.60 Distal CCA 94.10 / 29.70 78.90/ 25.60 Prox ICA 67.10 / 19.90 84.90/ 26.40 Mid ICA 80.60 / 33.40 95.80/ 40.30 Distal ICA 83.20 / 32.60 112.40 ECA 76.70 0.83 ICA/CCA 0.79 Antegrade Vertebral Antegrade 59.10/ 20.60 cm/s 65.10/ 17.60 cm/s Tri Subclavian Tri 144.6 169.3 0 0 FINDINGS Comparison:. 11/13/22 No significant elevation of systolic or diastolic velocities. Waveforms are normal. Minimal bilateral, intimal thickening with no elevation of velocity. CONCLUSIONS Bilateral ICA stenosis less than 50%. Dr. Edwina Diaz DO (Electronically Signed) Final Date: 13 May 2023 15:11 S
== END 2023-05-13 12:50 | disposition home or self-care (01) ==
LOC: RAD 12:49
PROVIDERS: PCP Family Medicine; Visit Provider Thoracic Surgery (Cardiothoracic Vascular Surgery)
DX: I65.23 Occlusion and stenosis of bilateral carotid arteries (principal)
CPT/HCPCS: 93880

== ENCOUNTER → 2023-05-19 13:50 | Outpatient (BNVA) | payer MEDICAID, SELFPAY | PROVIDERS: PCP Family Medicine; Visit Provider Surgery | DX: R10.9 Unspecified abdominal pain (principal) | CPT/HCPCS: 99212 ==

== ENCOUNTER 2023-06-04 07:48 | Day surgery (SDC) | payer MEDICAID, SELFPAY ==
[2023-06-04] VITALS (14 sets, daily range): BP systolic 94–190; BP diastolic 58–84; PULSE 69–81; RESP 14–20; TEMP 36.1–36.5; O2SAT 96–100; BMI 48.6
[2023-06-04 08:20] LABS: OR HCG Qualitative Urine Negative (Negative)
[2023-06-04 08:32] LABS: Glucose Point of Care 201 mg/dL (70-110)
[2023-06-04] MEDS: scopolamine 1.5 Patch 1 PATCH TRANSDERMA (08:34)
[2023-06-04] MEDS: vancomycin 1,500 MG/300 ML PIGGYBACK 200 MG IV (08:35)
[2023-06-04] MEDS: sodium chloride 0.9% 1,000 ML 30 ML IV (08:35)
--- NOTE | 2023-06-04 08:41 | W.PM.OPSUD ---
Surgery/Procedure H&P Update DATE OF PROCEDURE: June 04, 2023 DATE H&P PERFORMED: 05/19/23 H&P UPDATE INFORMATION: I have reviewed H&P completed within last 30 days, I have examined patient prior to procedure and No changes to prior documentation PLANNED PROCEDURE: Operation Date: 06/04/23 09:35 Proposed Procedures p 65695 lap donny R10.9(Not Applicable) - Shivam Gonzalez,
--- NOTE | 2023-06-04 08:53 | ANES.PREANE2 ---
Pre-Anesthetic Assessment Height/Weight: Height 1.52 m Weight 113 kg Temp Pulse Resp BP Pulse Ox O2 Del Method O2 Flow Rate 97.3 F L 75 20 H 190/71 100 Room Air 3 06/04/23 08:05 06/04/23 08:05 06/04/23 08:05 06/04/23 08:05 06/04/23 08:05 06/04/23 08:07 06/04/23 08:05 Operation Date: 06/04/23 09:35 Proposed Procedures p 08486 lap donny R10.9(Not Applicable) - Shivam Gonzalez DO Familial anesthetic complications: none Was Beta Tracy taken within 24 hours: Yes Was Clonidine taken within 24 hours: N/A Last intake: Intake Last Liquid Date 06/03/23 Last Liquid Time 23:00 Last Solid Date 06/03/23 Last Solid Time 19:30 Social No alcohol and No tobacco Airway Mallampati: Class III Dentition: full Comments: Comments: trach in 2020 for COVID Pulmonary Asthma and Sleep Apnea O2 prn CV/HEM Hypertension Chronic Renal Insufficiency Metabolic Diabetes Mellitus, Hyperlipidemia and Morbid Obesity [facility] [place] Rheumatoid Arthritis psoriatirc arthritis Anesthetic Plan ASA status: 4 Anesthesia: General Risk of > 500 ml blood loss (7ml/kg in children): No Medications/Allergies Home Medications Medication Instructions Recorded Confirmed Last Taken Type cetirizine 10 mg tablet 10 mg PO DAILY 09/10/21 06/03/23 06/03/23 History magnesium oxide 400 mg PO BID 01/21/22 06/03/23 06/03/23 History cholecalciferol (vitamin D3) 25 2,000 unit PO DAILY 05/12/22 06/03/23 06/03/23 History mcg (1,000 unit) capsule metoprolol succinate 50 mg 100 mg PO DAILY 05/12/22 06/03/23 06/03/23 20:00 History tablet,extended release 24 hr losartan 25 mg tablet 50 mg PO DAILY 12/16/22 06/03/23 06/03/23 History polysaccharide iron complex 150 mg 150 mg PO BID 12/16/22 06/03/23 06/03/23 19:00 History iron capsule pen needle, diabetic 31 gauge x #100 ea 01/12/23 05/19/23 Unknown Rx 11/04 (Comfort EZ Pen [place]) pantoprazole 40 mg tablet,delayed 40 mg PO BID 30 days #60 tabs 01/27/23 06/03/23 06/03/23 Rx release (Protonix) blood-glucose meter,continuous #1 ea 02/17/23 05/19/23 Unknown Rx (Dexcom G7 Personalized Living Manager) blood-glucose sensor (Dexcom G7 #3 ea 02/17/23 05/19/23 Unknown Rx Sensor device) prednisone 2.5 mg tablet 2.5 mg PO DAILY #90 tabs 03/05/23 06/03/23 06/03/23 08:00 Rx blood-glucose meter,continuous #1 ea 03/23/23 05/19/23 Unknown Rx (Dexcom G6 Personalized Living Manager) blood-glucose sensor (Dexcom G6 #3 ea 03/23/23 05/19/23 Unknown Rx Sensor device) blood-glucose transmitter (Dexcom #1 ea 03/23/23 05/19/23 Unknown Rx G6 Transmitter device) ixekizumab 80 mg/mL subcutaneous 80 mg SUBCUT .Q4 weeks #1 mL 03/24/23 06/03/23 Unknown Rx auto-injector (Taltz Autoinjector) ixekizumab 80 mg/mL subcutaneous See Rx Instructions SUBCUT 03/31/23 06/04/23 04/26/23 Rx auto-injector (Taltz Autoinjector .COMPLEX #3 mL (3 Pack)) insulin glargine 100 unit/mL (3 80 unit (0.8 mL) SUBCUT DAILY #50 05/20/23 06/03/23 06/03/23 18:00 Rx mL) subcutaneous pen (Lantus mL Solostar U-100 Insulin) atorvastatin 40 mg tablet (Lipitor) 40 mg PO DAILY 06/03/23 06/03/23 06/03/23 History azathioprine 50 mg tablet (Imuran) 50 mg PO BID Pauci Immune 06/03/23 06/03/23 06/03/23 History Glomerulo Nephritis insulin aspart U-100 100 unit/mL 30 unit SUBCUT TID 06/04/23 06/04/23 06/03/23 18:00 History (3 mL) subcutaneous pen (Novolog FlexPen U-100 Insulin aspart) Allergies Allergy/AdvReac Type Severity Reaction Status Date / Time adhesive Allergy Mild ALGY-Rash Verified 06/03/23 09:10 aspirin Allergy Mild Hives Verified 06/03/23 09:10 cephalexin [From Keflex] Allergy Mild Hives Verified 06/03/23 09:10 Latex, Natural Rubber Allergy Mild Rash itch Verified 06/03/23 09:10 naproxen [From Aleve] Allergy Mild rash Verified 06/03/23 09:10 Sulfa (Sulfonamide Allergy Mild Hives Verified 06/03/23 09:10 Antibiotics) latex Allergy Unknown UNKNOWN Verified 06/03/23 09:10 NSAIDS (Non-Steroidal Allergy Unknown UNKNOWN Verified 06/03/23 09:10 Anti-Inflamma ibuprofen [From Motrin] Allergy rash Verified 06/03/23 09:10 tramadol AdvReac Mild Migraines Verified 06/03/23 09:10 Current Medications Generic Name Dose Route Start Last Admin Trade Name Freq PRN Reason Stop Dose Admin Sodium Chloride 1,000 mls @ 30 mls/hr 06/04/23 08:15 06/04/23 08:35 Sodium Chloride 0.9% IV 06/05/23 08:14 30 mls/hr .Q24H EUNICE Administration Vancomycin/PEG/NADA/Lysine/Water 1,500 mg in 300 mls @ 200 mls/hr 06/04/23 08:02 06/04/23 08:35 Vancocin IV 06/04/23 09:31 200 mls/hr [employer] ONE Administration Protocol [facility] Anesthesia Medical History 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 Vasculitis HLA B27 (HLA B27 positive) Enthesitis Inflammatory back pain Encounter for screening for other viral diseases Immunization counseling High risk medication use History of psoriasis Skin rash Psoriatic arthritis GERD (gastroesophageal reflux disease) Fibromyalgia Hypertension Hx of migraines History of hypercholesterolemia Joint pain Muscle pain Surgical History S/P emergency tracheotomy for assistance in breathing History of tubal ligation Family History Other Cancer Diabetes Hyperlipidemia Psoriatic arthritis Stroke Denies family history of Rheumatoid arthritis Lupus CAD (coronary artery disease) Chronic kidney disease (CKD) Lung disease Hypertension Social History Smoking and tobacco/nicotine status: former use of tobacco/nicotine Quit status (tobacco/nicotine): has quit using Year quit tobacco: 2016 Former quit date comment: 1ppd X 19 years, started at age 17 years Alcohol intake: current Alcohol intake frequency: holidays/special occasions only Female Reproductive History Date of last menstrual period: 05/27/23 Data Anesthesia Cardiac Studies: Echocardiogram 10/28/22 Cardiac Event Monitor 11/03/22
[2023-06-04] MEDS: insulin regular-human 100 units/1 mL 10 UNIT IVP (09:15)
[2023-06-04] MEDS: midazolam 1 mg/mL INJ 2 mL 2 MG IVP (09:18)
[2023-06-04 09:59] LABS: Glucose Point of Care 156 mg/dL (70-110)
[2023-06-04] MEDS: lidocaine-epi 2% 20 mL INJ INJECTION (10:45)
--- NOTE | 2023-06-04 11:18 | P.OP_ITS ---
Operative Report Date of procedure: June 04, 2023 Post-op diagnosis: same Surgeon: Shivam Gonzalez DO Brief History: This very pleasant 43-year-old female who had an extensive workup for abdominal pain nausea vomiting diarrhea. She was diagnosed with right upper quadrant syndrome. Laparoscopic cholecystectomy is indicated. The risk and benefits were explained and documented. Procedure: Preoperative diagnosis: Right upper quadrant syndrome Postoperative diagnosis: Same Procedure performed: Laparoscopic cholecystectomy Surgeon: Dr. Shivam Gonzalez DO Estimated blood loss: 5 mL Specimens: Gallbladder to pathology Complications: None apparent Description of procedure: Patient was wheeled into the operative room and placed on the OR table in a supine position. Abdomen was inspected prepped and draped in usual sterile fashion. Time-out was performed and all present were in agreement. A 15 blade scalp was used to make a stab incision in the left upper quadrant and intra- abdominal insufflation was achieved using a Veress needle. After localizing the tissue incisions were made and a 5 millimeter trocar was placed into the umbilicus as well as 2 in the right upper quadrant. A 12 millimeter trocar was placed in the epigastrium. Gallbladder was grasped and elevated. The triangle of Calot was carefully dissected using blunt dissection and electrocautery until the triangle of Calot clearly identified. The cystic duct was clipped proximally and double clipped distally. The duct was then ligated proximally. The cystic artery was doubly clipped and ligated. The gallbladder was then removed from the liver bed using electrocautery. The gallbladder was removed from the abdomen using an Endo-Catch bag through the epigastric incision. The liver bed was inspected and no bleeding was seen. The abdomen was irrigated and suctioned. All ports removed. Skin was washed and dried. Incisions were closed with 4-0 Monocryl in a subcuticular interrupted fashion. Skin glue was applied. Patient tolerated the procedure well.
[2023-06-04] MEDS: ondansetron 2 mg/ML SDV 2 mL 4 MG IVP (11:53)
[2023-06-04] MEDS: fentaNYL 50 mcg/mL INJ 2mL IVP (11:55)
--- NOTE | 2023-06-04 13:15 | ANE.PACU2 ---
Inpatient post-anesthesia follow up: Airway intact: Yes Vital signs: Temperature 97.5 F Pulse Rate 71 Respiratory Rate 14 Blood Pressure 131/70 Pulse Oximetry 99 Oxygen Delivery Me thod Nasal Cannula Oxygen Flow Rate 2 Fraction of Inspir ed Oxygen Hydration adequate: Yes Nausea and vomiting: No Pain level: 1 Mental status: Baseline
[2023-06-04 13:17] LABS: Glucose Point of Care 271 mg/dL (70-110)
--- NOTE | 2023-06-04 13:42 | SUR.PHASEII ---
13:25 ABDOMEN INCISIONS DRY AND INTACT ,NO DRAINAGE.
== END 2023-06-04 13:30 | disposition home or self-care (01) ==
PROVIDERS: Anesthesiology; PCP Family Medicine; Visit Provider Surgery
PROC: 0FT44ZZ Resection of Gallbladder, Percutaneous Endoscopic Approach (ICD-10-PCS; CPT 47562; principal; 2023-06-04 09:25)
DX: K81.1 Chronic cholecystitis (principal); I10 Essential (primary) hypertension; E11.9 Type 2 diabetes mellitus without complications; E78.5 Hyperlipidemia, unspecified; E66.01 Morbid (severe) obesity due to excess calories; M06.9 Rheumatoid arthritis, unspecified; Z79.4 Long term (current) use of insulin; K21.9 Gastro-esophageal reflux disease without esophagitis; Z87.891 Personal history of nicotine dependence
CPT/HCPCS: 47562; 36416; 81025; 82962; 84703; 88304; J0330; J1100; J1815; J2250; J2405; J2704; J2710; J3010; J3370; J3490; J7030

== ENCOUNTER → 2023-08-17 13:54 | Outpatient (BNVA) | payer MEDICAID, SELFPAY | PROVIDERS: PCP Family Medicine; Visit Provider Thoracic Surgery (Cardiothoracic Vascular Surgery) | DX: I77.9 Disorder of arteries and arterioles, unspecified (principal) | CPT/HCPCS: 99213 ==

== ENCOUNTER → 2023-09-28 10:56 | Outpatient (BNVA) | payer MEDICAID, SELFPAY | PROVIDERS: PCP Family Medicine; Visit Provider Family Medicine | DX: J30.9 Allergic rhinitis, unspecified (principal); E78.2 Mixed hyperlipidemia; I10 Essential (primary) hypertension; K29.00 Acute gastritis without bleeding; E11.9 Type 2 diabetes mellitus without complications; M53.3 Sacrococcygeal disorders, not elsewhere classified; E11.22 Type 2 diabetes mellitus with diabetic chronic kidney disease; N18.32 Chronic kidney disease, stage 3b; Z79.4 Long term (current) use of insulin; J30.1 Allergic rhinitis due to pollen; J02.9 Acute pharyngitis, unspecified; W19.XXXA Unspecified fall, initial encounter; Y92.009 Unspecified place in unspecified non-institutional (private) residence as the place of occurrence of the external cause | CPT/HCPCS: 80053; 83036 ==

== ENCOUNTER → 2023-10-14 09:23 | Outpatient (BNVA) | payer MEDICAID, SELFPAY | PROVIDERS: PCP Family Medicine; Visit Provider Internal Medicine Rheumatology | DX: Z79.899 Other long term (current) drug therapy (principal); L40.50 Arthropathic psoriasis, unspecified; N05.9 Unspecified nephritic syndrome with unspecified morphologic changes; I77.89 Other specified disorders of arteries and arterioles; Z71.89 Other specified counseling; M79.7 Fibromyalgia; Z15.89 Genetic susceptibility to other disease | CPT/HCPCS: 36415; 80076; 82565; 85025; 86140; 99214 ==

== ENCOUNTER → 2023-11-23 14:41 | Outpatient (BNVA) | payer MEDICAID, SELFPAY | PROVIDERS: PCP Family Medicine; Visit Provider Family Medicine | DX: N05.9 Unspecified nephritic syndrome with unspecified morphologic changes (principal); I77.89 Other specified disorders of arteries and arterioles; N18.32 Chronic kidney disease, stage 3b; D63.1 Anemia in chronic kidney disease; R53.83 Other fatigue; M79.7 Fibromyalgia | CPT/HCPCS: 82607; 82652; 82746; 83540; 85007; 85027 ==

== ENCOUNTER → 2023-11-24 17:30 | Outpatient (BNVA) | payer MEDICAID, SELFPAY | PROVIDERS: PCP Family Medicine; Visit Provider Family Medicine | DX: N05.9 Unspecified nephritic syndrome with unspecified morphologic changes (principal); I77.89 Other specified disorders of arteries and arterioles; N18.32 Chronic kidney disease, stage 3b; D63.1 Anemia in chronic kidney disease; R53.83 Other fatigue; M79.7 Fibromyalgia | CPT/HCPCS: 80503 ==

== ENCOUNTER → 2024-02-26 13:04 | Outpatient (BNVA) | payer MEDICAID, SELFPAY ==
[2024-01-15 15:25] VITALS: BP 157/84; BMI 51.2
== END ==
PROVIDERS: PCP Family Medicine; Visit Provider Specialist
DX: E11.40 Type 2 diabetes mellitus with diabetic neuropathy, unspecified (principal); G43.711 Chronic migraine without aura, intractable, with status migrainosus; R42 Dizziness and giddiness; R26.9 Unspecified abnormalities of gait and mobility; G47.33 Obstructive sleep apnea (adult) (pediatric); M79.7 Fibromyalgia; I77.6 Arteritis, unspecified
CPT/HCPCS: 99205

== ENCOUNTER → 2024-03-31 15:26 | Outpatient (BNVA) | payer MEDICAID, SELFPAY ==
[2024-01-15 15:25] VITALS: BP 157/84; BMI 51.2
== END ==
PROVIDERS: PCP Family Medicine; Visit Provider Specialist
DX: E11.40 Type 2 diabetes mellitus with diabetic neuropathy, unspecified (principal); G43.711 Chronic migraine without aura, intractable, with status migrainosus; R42 Dizziness and giddiness; R26.9 Unspecified abnormalities of gait and mobility; G47.33 Obstructive sleep apnea (adult) (pediatric); M79.7 Fibromyalgia; I77.6 Arteritis, unspecified
CPT/HCPCS: 99214

== ENCOUNTER 2024-04-22 10:00 | Outpatient (CLI) | payer MEDICAID, SELFPAY ==
[2024-01-15 15:25] VITALS: BP 157/84; BMI 51.2
--- NOTE | 2024-04-22 10:06 | USCV_ITS ---
Amna Feliciano Age: 44 Gender: F : 1980 Exam Date: 04/22/2024 10:17 Ordering Phys: Aysha Jj MD Technologist: [place] [facility] [place]: BP: 145 / 81 HR: 76 Rhythm: Sinus Technical Quality: Adequate MEASUREMENTS (Male / Female) Normal Values 2D ECHO LVOT Diameter 3.8 cm LV Ejection Fraction MOD 4C 68.9 % LV Ejection Fraction MOD 2C 68.3 % LV Ejection Fraction 2C AL 68.9 % LA Diameter 3.2 cm RA Systolic Volume 4C AL 19.1 ml RA Systolic Volume 4C MOD 19.0 ml LA Sys Volume AL 35.5 cm cubed LA Sys Volume Index AL 15.2 cm cubed/m squared Aorta at Sinotubular Diameter 2.0 cm M-MODE LA Ao Ratio MM 1.6 AV Cusp Separation MM 2.0 cm DOPPLER AV Peak Velocity 136.0 cm/s LVOT Peak Velocity 130.0 cm/s AV Area Cont Eq vti 10.7 cm squared AV Area Cont Eq pk 10.9 cm squared MV Peak Velocity 101.0 cm/s MV Area PHT 3.8 cm squared Mitral E to A Ratio 1.0 TR Peak Velocity 152.0 cm/s TR Peak Gradient 9.2 mmHg TV Peak E Velocity 75.0 cm/s Right Atrial Pressure 3.0 mmHg Pulmonary Artery Systolic Pressu 12.2 mmHg PV Peak Velocity 109.0 cm/s FINDINGS Left Ventricle Normal left ventricular size, systolic function and wall thickness, with no regional wall motion abnormalities. Estimated LVEF normal 65%. Right Ventricle Normal right ventricular size and systolic function. Right Atrium Normal right atrial size. Left Atrium Normal left atrial size. Mitral Valve Structurally normal mitral valve. No mitral valve regurgitation. Aortic Valve Structurally normal trileaflet aortic valve. No aortic valve stenosis. Tricuspid Valve Structurally normal tricuspid valve. Pulmonic Valve Pulmonic valve not well visualized. Trace pulmonary valve regurgitation. Pericardium Normal Aorta Normal size aortic root and proximal ascending aorta. IVC Mildly dilated however normal more than 50% respiratory response. CONCLUSIONS Normal left ventricle systolic function. LVEF normal 65%. Normal chamber sizes. No significant valvular abnormality noted. Normal right heart and pulmonary pressures. Mary Montez MD (Electronically Signed) Final Date: 22 April 2024 13:49 S
== END 2024-04-22 10:01 | disposition home or self-care (01) ==
PROVIDERS: PCP Family Medicine; Visit Provider Internal Medicine
DX: R06.09 Other forms of dyspnea (principal)
CPT/HCPCS: 93306

== ENCOUNTER → 2024-07-05 15:21 | Outpatient (BNVA) | payer MEDICAID, SELFPAY ==
[2024-01-15 15:25] VITALS: BP 157/84; BMI 51.2
== END ==
PROVIDERS: PCP Family Medicine; Visit Provider Specialist
DX: E11.42 Type 2 diabetes mellitus with diabetic polyneuropathy (principal); G43.711 Chronic migraine without aura, intractable, with status migrainosus; R42 Dizziness and giddiness; R26.9 Unspecified abnormalities of gait and mobility; G47.33 Obstructive sleep apnea (adult) (pediatric); M79.7 Fibromyalgia; I77.6 Arteritis, unspecified
CPT/HCPCS: 99214

== ENCOUNTER → 2025-01-19 10:18 | Outpatient (BNVA) | payer MEDICAID, SELFPAY ==
[2024-01-15 15:25] VITALS: BP 157/84; BMI 51.2
== END ==
PROVIDERS: PCP Family Medicine; Visit Provider Family Medicine
DX: I10 Essential (primary) hypertension (principal); F33.2 Major depressive disorder, recurrent severe without psychotic features; F41.1 Generalized anxiety disorder; E78.2 Mixed hyperlipidemia; E11.22 Type 2 diabetes mellitus with diabetic chronic kidney disease; Z79.4 Long term (current) use of insulin; N18.32 Chronic kidney disease, stage 3b; D63.1 Anemia in chronic kidney disease; L40.50 Arthropathic psoriasis, unspecified
CPT/HCPCS: 80053; 80061; 83036; 84443; 85025